=== PATIENT | female | born 1995 | race Caucasian/White ===

== ENCOUNTER → 2022-09-09 09:28 | Outpatient (BNVA) | payer OTHER, SELFPAY | PROVIDERS: PCP Nurse Practitioner Family; Visit Provider Physician Assistant Surgical ==

== ENCOUNTER → 2022-09-13 08:45 | Outpatient (BNVA) | payer OTHER, SELFPAY | PROVIDERS: PCP Nurse Practitioner Family; Visit Provider Surgery ==

== ENCOUNTER 2022-09-21 07:52 | Outpatient (REF) | payer OTHER, SELFPAY ==
--- NOTE | ~2022-09-21 | XR_ITS ---
EXAMINATION: XR CHEST CLINICAL INFORMATION: Obesity COMPARISON: None available. TECHNIQUE: 2 views of the chest were obtained. FINDINGS: No significant abnormality is noted involving the heart, lungs, mediastinum, bony thorax or soft tissues. XR/XR chest 2V IMPRESSION: Unremarkable examination.
--- NOTE | 2022-09-21 08:03 | ECG_ITS ---
Test Reason : morbid obesity Blood Pressure : / mmHG Vent. Rate : 068 BPM Atrial Rate : 068 BPM P-R Int : 172 ms QRS Dur : 082 ms QT Int : 416 ms P-R-T Axes : 003 041 031 degrees QTc Int : 442 ms Normal sinus rhythm Low voltage QRS Borderline ECG No previous ECGs available Referred By: Quan Jane Electronically Signed By:PENG ROBLEDO
[2022-09-21 08:16] LABS: MANUAL DIFF FLAG NO
[2022-09-21 08:28] LABS: Basophils Percent Auto 0.6 % (0-2); Eosinophils Absolute Auto 0.3 X10*3/uL (0.0-0.4); Hematocrit 42.2 % (37.0-47.0); Hemoglobin 14.2 g/dl (12.0-16.0); Imm Gran Abs Auto 0.02 X10*3/uL (0.00-0.03); Imm Gran Pct Auto 0.4 % (0.0-0.4); Lymphocytes Absolute Auto 1.3 X10*3/uL (1.2-4.9); Lymphocytes Percent Auto 26.5 % (20-40); Mean Corpuscular HGB Conc 33.6 g/dl (31.0-35.0); Mean Corpuscular Hemoglobin 27.6 pg (27.0-33.0); Mean Corpuscular Volume 82.1 fL (80.0-98.0); Mean Platelet Volume 9.9 fL (9.4-12.3); Monocytes Absolute Auto 0.5 X10*3/uL (0.1-1.2); Monocytes Percent Auto 9.5 % (2-11); Neutrophils Absolute Auto 2.7 x10*3/uL (2.0-8.3); Platelet Count 284 X10*3/uL (160-400); Red Blood Count 5.14 X10*6/uL (4.20-5.50); Red Cell Distribution Width 12.8 % (11.0-16.0); White Blood Count 4.9 X10*3/uL (4.8-10.8)
[2022-09-21 08:36] LABS: Estimated Average Glucose 97 mg/dL
[2022-09-21 09:07] LABS: Alanine Aminotransferase 23 U/L (0-31); Albumin Level 4.1 g/dL (3.5-5.0); Alkaline Phosphatase 79 U/L (39-117); Anion Gap 14 (12-20); Aspartate Amino Transferase 19 U/L (5-31); Bilirubin Total 0.6 mg/dL (0.0-1.0); Blood Urea Nitrogen 16 mg/dL (9-16); Calcium 9.1 mg/dL (8.4-10.2); Carbon Dioxide 22 mmol/L (22-29); Chloride 108 mmol/L (96-108); Cholesterol 277 mg/dL; Estimated Glomerular Filt Rate > 60; Glucose Random 88 mg/dL (60-115); HDL Cholesterol 37 mg/dL; Iron 140 mcg/dL (30-160); LDL Cholesterol Calculated 208 mg/dl; Percent Iron Saturation 36 % (15-50); Sodium 140 mmol/L (135-145); Total Iron Binding Capacity 389 mcg/dL (228-428); Total Protein 7.3 g/dL (6.5-8.0); Triglycerides 162 mg/dL; Unsaturated Iron Binding 249 ug/dL
[2022-09-21 09:38] LABS: Ferritin 40 ng/mL (10-122); Folate 15.5 ng/mL (> or = 4.0); Insulin 10 uU/mL (2-29); Vitamin B12 865 pg/mL (200-900); Vitamin D 25-OH Total 24.4 ng/mL (>30)
[2022-09-22 14:08] LABS: Calcium (PTHI) 9.1 mg/dL (8.6-10.2); PTHI 80 pg/mL (16-77)
[2022-09-23 13:54] LABS: H Pylori Breath Test Negative (Negative)
[2022-09-27 07:03] LABS: Vitamin B1 11 nmol/L (8-30)
[2022-09-28 17:18] LABS: Zinc 69 mcg/dL (60-130)
[2022-09-29 16:33] LABS: Vitamin A 42 mcg/dL (38-98)
== END 2022-09-21 07:53 | disposition home or self-care (01) ==
LOC: HO.LAB 07:52
PROVIDERS: Visit Provider Surgery
DX: E66.01 Morbid (severe) obesity due to excess calories (principal)
CPT/HCPCS: 36415; 71046; 80053; 80061; 82306; 82607; 82728; 82746; 83013; 83036; 83525; 83540; 83970; 84425; 84443; 84590; 84630; 85025; 86140; 93005; 99211

== ENCOUNTER → 2022-10-05 14:59 | Outpatient (BNVA) | payer OTHER, SELFPAY | PROVIDERS: PCP Nurse Practitioner Family; Visit Provider Counselor Mental Health ==

== ENCOUNTER → 2022-10-15 08:39 | Outpatient (BNVA) | payer OTHER, SELFPAY | PROVIDERS: PCP Nurse Practitioner Family; Visit Provider Surgery ==

== ENCOUNTER → 2022-10-19 13:27 | Outpatient (BNVA) | payer OTHER, SELFPAY | PROVIDERS: PCP Nurse Practitioner Family; Visit Provider Dietitian, Registered | DX: E66.01 Morbid (severe) obesity due to excess calories (principal); Z71.3 Dietary counseling and surveillance | CPT/HCPCS: 97802 ==

== ENCOUNTER 2022-11-15 13:51 | Outpatient (AMB) | payer OTHER, SELFPAY ==
[2022-11-15 11:12] VITALS: BMI 40.9
--- NOTE | 2022-11-15 11:12 | MHC.OFFVISWM ---
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 She had her sister visiting from the [place] and she was eating things not on the menu Meal plan: 2 Orgain protein shakes (1 scoop each in 8oz almond milk), 9-11, and 3-5 one Zone Perfect protein bar, 12-2, 8-10 pm 6 pm one meal (8 forks of protein and 8 forks of salad or vegetables) Drinking 32 oz water exercise plan: home videos but none in the last 2 weeks, planning to join [employer]. [facility] Medical History Back pain Morbid obesity Surgical History Hx of breast reduction, elective Hx of section Family History Mother No problems noted. Father Hypertension Sister No problems noted. Sister No problems noted. Brother No problems noted. Daughter No problems noted. Social History Alcohol intake: never Patient Tobacco Use Status: Never used Tobacco Physical Exam Vital Signs: BMI result Body Mass Index 40.9 Assessment & Plan Assessment & Plan (1) Morbid obesity: Code(s): E66.01 - Morbid (severe) obesity due to excess calories Plan: discussed need to commit to the plans. Encouraged her to discuss with her family that she is trying to achieve a healthy weight and lifestyle and not to offer her food Discussed exercise as a critical part of the program She states she qnd her BF are going to [employer] fitness RTC w Dr Bethea as scheduled Telehealth Telehealth Location of provider rendering services: practice address Location of patient: address on file Patient Identification confirmed using: Name, : Yes Telehealth method: video Patient verbally consented to treatment: Yes Patient verbally consented to billing insurance company: Yes Patient informed of any privacy concerns related to visit: Yes Minutes spent on Phone/Video with Pt.: 15 Coding Level of Care Code Tele Est Pt Level 3 (71879) Diagnoses Morbid obesity E66.01 Time Spent (min) 20
== END 2022-11-15 13:52 | disposition home or self-care (01) ==
LOC: HO.HBS 13:51
PROVIDERS: PCP Nurse Practitioner Family; Visit Provider Physician Assistant Surgical
DX: E66.01 Morbid (severe) obesity due to excess calories (principal); Z68.41 Body mass index [BMI] 40.0-44.9, adult
CPT/HCPCS: 99213

== ENCOUNTER → 2022-11-15 13:51 | Outpatient (BNVA) | payer OTHER, SELFPAY | PROVIDERS: PCP Nurse Practitioner Family; Visit Provider Physician Assistant Surgical ==

== ENCOUNTER 2022-11-19 07:22 | Outpatient (REF) | payer OTHER, SELFPAY ==
--- NOTE | ~2022-11-19 | FL_ITS ---
PROCEDURE: XR FLUOROSCOPY UPPER GI WITH AIR CLINICAL INFORMATION: Morbid to severe obesity due to excess calories. COMPARISON: None available. TECHNIQUE: Routine upper GI air-contrast study was performed in upright and lying position. FINDINGS: Following oral administration of thick barium and effervescent granules in upright view there is normal propagation of bolus from the oral cavity through the pharynx, esophagus into stomach without any evidence of obstruction, narrowing or stricture. The course, caliber and peristalsis of the stomach, duodenal bulb and the sweep is normal. The mucosal pattern of the stomach and duodenum is normal. FLUOROSCOPY TIME: 1.1 minute DOSE AREA PRODUCT: 40.835 uGy-m2 (microgray-meter squared) FL/FL upper GI w air IMPRESSION: Unremarkable upper GI air-contrast study.
--- NOTE | ~2022-11-19 | US_ITS ---
EXAMINATION: US COMPLETE ABDOMEN WITH LIVER ELASTOGRAPHY CLINICAL INFORMATION: Obesity COMPARISON: None available. TECHNIQUE: Real-time imaging of the abdominal viscera. Noninvasive ultrasound liver fibrosis assessment is performed using Deepika ElastPQ point quantification shear wave elastography (2D-SWE) with a C5-2 MHz transducer. Multiple elastography samples are obtained. FINDINGS: PANCREAS: Not well visualized due to bowel gas ABDOMINAL AORTA: The proximal, middle, and distal aortic segments are normal in caliber. INFERIOR VENA CAVA: Visualized portions are normal. LIVER: Liver echotexture is slightly increased. Liver is normal in size and contour. No focal lesion or intrahepatic biliary duct dilatation. The right lobe measures 15 cm in length. The left lobe measures 8 cm in length. Portal flow is normal/hepatopedal Shear wave liver elastography median stiffness is 1.5 m/s (reference: normal median stiffness is 1.3 m/s or less). IQR/median stiffness to assess sampling precision is 0.12 (reference: good quality data set is IQR/median stiffness of 0.15 or less). GALLBLADDER: Gallbladder is contracted and not well evaluated. Gallstones. COMMON BILE DUCT: Normal in caliber measuring 0.3 cm in diameter. RIGHT KIDNEY: Normal. No hydronephrosis. No renal calculi or focal parenchymal lesions. The kidney measures 10.4 cm in maximum dimension. LEFT KIDNEY: Normal. No hydronephrosis. No renal calculi or focal parenchymal lesions. The kidney measures 10.2 cm in maximum dimension. SPLEEN: Normal. The spleen measures 11.3 cm in maximum dimension. FREE FLUID: None. US/US abdomen comp w elastography IMPRESSION: 1. Impression: slightly echogenic liver probably representing fatty infiltration. Contracted gallbladder. Gallstones. Limited visualization of the pancreas. 2. Liver elastography: Adequate liver sampling. In the absence of other known clinical signs, rules out compensated advanced chronic liver disease. REFERENCE: Society of Radiologists in Ultrasound Liver Stiffness Thresholds (2020): LIVER STIFFNESS THRESHOLDS: *Liver Stiffness equal or less than 1.3 m/s: High probability of being normal. *Liver Stiffness less than 1.7 m/s: In the absence of other known clinical signs, rules out compensated advanced chronic liver disease. *Liver Stiffness 1.7-2.1 m/s: Suggestive of compensated advanced chronic liver disease but need further test for confirmation. *Liver Stiffness over 2.1 m/s: Rules in compensated advanced chronic liver disease. *Liver Stiffness over 2.4 m/s: Suggestive of clinically significant portal hypertension. QUALITY OF DATA SET: *IQR/Median value equal or less than 0.15 implies a quality data set. *IQR/Median value over 0.15 implies a poor quality data set. SIGNIFICANT CHANGE FROM PRIOR EXAM: Significant change if liver stiffness measurement is 10% or greater from prior exam. OTHER CONSIDERATIONS: The stage of liver fibrosis may be overestimated in the setting of acute hepatitis, liver inflammation, elevated liver function tests, hepatic vascular congestion, obstructive cholestasis, non-fasting state, and infiltrative diseases such as amyloidosis and lymphoma. In some patients with NAFLD, the liver stiffness thresholds for compensated advanced chronic liver disease may be lower. In causes other than viral hepatitis and NAFLD, liver stiffness thresholds are not well established.
== END 2022-11-19 07:23 | disposition home or self-care (01) ==
LOC: HO.US 07:22
PROVIDERS: PCP Nurse Practitioner Family; Visit Provider Surgery
DX: E66.01 Morbid (severe) obesity due to excess calories (principal)
CPT/HCPCS: 74246; 76705; 76981

== ENCOUNTER → 2022-11-19 07:23 | Outpatient (BNV) | payer OTHER, SELFPAY | PROVIDERS: PCP Nurse Practitioner Family; Visit Provider Radiology Diagnostic Radiology | DX: E66.01 Morbid (severe) obesity due to excess calories (principal); Z68.41 Body mass index [BMI] 40.0-44.9, adult | CPT/HCPCS: 74246 ==

== ENCOUNTER 2022-12-13 08:23 | Outpatient (AMB) | payer OTHER, SELFPAY ==
--- NOTE | 2022-12-13 11:31 | MHC.OFFVISWM ---
Intake VS Expanded 12/13/22 11:37 Height 5 ft 5 in Weight 206 lb BMI 34.3 Body Fat 106 Body Fat Percentage 51.5 Free Fat Mass 99.8 Visceral Mass 22 Water Mass 68.5 BMR 1,348 Intake Visit Reasons: TV Follow Up SWL - Allergies egg yolk [EGG YOLK] Allergy (Unknown, Verified 09/21/22 09:08) ITCHY EYES oak [OAK] Allergy (Unknown, Verified 09/21/22 09:08) ITCHY EYES FROM OAK TREES HPI TV Follow Up SWL - HPI Details Start time: 11.22am, End time: 11.42am ?I spent 15 minutes speaking with the patient on the phone plus an additional 5 minutes reviewing and updating records for a total of 20 minutes HPI Comments History of Present Illness Details Overall weight loss: 12.4lbs, or 5.68% TBWL Is doing 2 Orgain protein shakes (1 scoop each in 8oz almond milk), 2 Zone Perfect protein bars and one meal (8 forks of protein and 8 forks of salad or vegetables) Exercise: is doing stationary bike for 300 calories and walking/hiking on weekends for 300 calories PFSH Medical History Back pain Morbid obesity Surgical History Hx of breast reduction, elective Hx of section Family History Mother No problems noted. Father Hypertension Sister No problems noted. Sister No problems noted. Brother No problems noted. Daughter No problems noted. Social History Alcohol intake: never Patient Tobacco Use Status: Never used Tobacco Assessment & Plan Assessment & Plan (1) Obesity: Code(s): E66.9 - Obesity, unspecified Plan: 1. Continue same nutritional plan of 2 Orgain protein shakes (1 scoop each in 8oz almond milk), 2 Zone Perfect protein bars and one meal (8 forks of protein and 8 forks of salad or vegetables) 2. Exercise: continue stationary bike for 300 calories and walking/hiking on weekends for 300 calories 3. Send me weight measurements weekly on Fridays (2) BMI 34.0-34.9,adult: Code(s): Z68.34 - Body mass index [BMI] 34.0-34.9, adult Telehealth Telehealth Location of provider rendering services: practice address Location of patient: address on file Patient Identification confirmed using: Name, : Yes Telehealth method: voice only Patient verbally consented to treatment: Yes Patient verbally consented to billing insurance company: Yes Patient informed of any privacy concerns related to visit: Yes Minutes spent on Phone/Video with Pt.: 20 Coding Level of Care Code Tele Est Pt Level 3 (56629) Diagnoses Obesity E66.9 BMI 34.0-34.9,adult Z68.34 Time Spent (min) 20
[2022-12-13 11:37] VITALS: BMI 34.3
== END 2022-12-13 11:42 | disposition home or self-care (01) ==
PROVIDERS: PCP Nurse Practitioner Family; Visit Provider Surgery
DX: E66.9 Obesity, unspecified (principal); Z68.34 Body mass index [BMI] 34.0-34.9, adult
CPT/HCPCS: 99213

== ENCOUNTER → 2022-12-13 08:23 | Outpatient (BNVA) | payer OTHER, SELFPAY | PROVIDERS: PCP Nurse Practitioner Family; Visit Provider Surgery | DX: E66.01 Morbid (severe) obesity due to excess calories (principal) ==

== ENCOUNTER 2022-12-17 08:33 | Outpatient (AMB) | payer OTHER, SELFPAY ==
--- NOTE | 2022-12-17 10:46 | MHC.OFFVISWM ---
Intake VS Expanded 12/17/22 10:55 Height 5 ft 5 in Weight 207 lb BMI 34.4 Body Fat 107.2 Body Fat Percentage 51.8 Free Fat Mass 99.6 Visceral Mass 22 Water Mass 68.3 BMR 1,347 Intake Visit Reasons: TV Pre Op LSG 12/23/22 Allergies egg yolk [EGG YOLK] Allergy (Unknown, Verified 12/17/22 10:46) ITCHY EYES oak [OAK] Allergy (Unknown, Verified 12/17/22 10:46) ITCHY EYES FROM OAK TREES Medication List - Last Reconciled 12/17/22 by Quan Jane MD cholecalciferol (vitamin D3) 125 mcg PO DAILY ondansetron 4 mg PO Q12H pantoprazole 40 mg PO DAILY polyethylene glycol 3350 (Miralax) 17 grams PO DAILY sucralfate 10 mL PO BID HPI TV Pre Op LSG 12/23/22 HPI Details Start time: 10.41am, End time: 11.01am ?I spent 15 minutes speaking with the patient on the phone plus an additional 5 minutes reviewing and updating records for a total of 20 minutes HPI Comments History of Present Illness Details Overall weight loss: 11.4lbs, or 5.22% TBWL Is doing 2 Orgain protein shakes (1 scoop each in 8oz almond milk), 2 Zone Perfect protein bars and one meal (8 forks of protein and 8 forks of salad or vegetables) Exercise: doing the stationary bike for 300 calories x4-5 days per week PFSH Medical History (Updated 12/13/22 @ 11:41 by Quan Jane MD) Back pain Morbid obesity Surgical History (Updated 12/17/22 @ 10:25 by Sue Peacock RN) Hx of breast reduction, elective Hx of section Hx of tonsillectomy Hx of wisdom tooth extraction Family History Mother No problems noted. Father Hypertension Sister No problems noted. Sister No problems noted. Brother No problems noted. Daughter No problems noted. Social History Are you a primary medicare specialist to a significant other at home: Yes Do you presently have visiting nurse or other home services: No Alcohol intake: never Patient Tobacco Use Status: Never used Tobacco Assessment & Plan Assessment & Plan (1) Obesity: Code(s): E66.9 - Obesity, unspecified Plan: 1. Plan for lap sleeve gastrectomy including upper GI endoscopy. All tests has been completed and reviewed and the patient is cleared for the surgery. ?If diaphragmatic or ventral hernias are present at time of surgery, these will be repaired laparoscopically as well. Risks and complications were discussed in detail including possible conversion to an open procedure, anastomotic leak, bleeding requiring transfusion, small bowel obstruction, , DVT and pulmonary embolism, cardiac, or pulmonary complications, as truck terminal manager complications such as anastomotic ulcer, insufficient weight loss and vitamin deficiencies. I emphasized the importance of close follow-up, adherence to instructions and good communication. So far she has proven to be an excellent communicator and very compliant with all our directions accomplishing a great weight loss. I believe that she is an excellent candidate and she is ready. 2. Preop prescriptions were provided and explained the purpose of each one. Need to be purchased preop. Start Pantoprazole now as you get it from the pharmacy, 1 pill per day. Sucralfate and Zofran are for after surgery as needed. 3. Bowel prep: please do 7 packets ?of Miralax mixing each one with a an 8oz glass of water, crystal light, gatorade zero, or propel ?on 12/21/22 and the same amount on 12/22/22. Continue the protein shakes during? the bowel prep. 4. Needs to purchase 1oz medicine cups . 5. Needs to purchase Children's liquid Tylenol for postop pain control. 6. Avoid aspirin, motrin, Advil, Aleve, Ibuprofen, Naproxyn. Tylenol is OK. 7. She needs to purchase the Celebrate 4:1 protein shakes from the hospital's gift [facility]. 8. Importance of adherence to postop folllow-up and recommendations was underscored and she understands that. 9. Stop food and bars as of TODAY 12/17/22 and continue with 4 Orgain protein shakes (ONE scoop EACH in 8oz almond milk) at 9am-11am, 12pm-2pm, 3pm-5pm, 6pm-8pm and one more ORGAIN protein shake with TWO scoops in 8oz of almond milk at 9pm-11pm 10. No soups, broths or V8 11. The patient's?medical?history has been reviewed and they are considered low risk for post op DVT and therefore DVT prophylaxis is not considered necessary. Travel after surgery was reviewed. The patient has not disclosed any travel plans during the first 30 days after surgery and they have been advised that within the first 30 days after surgery any bus, plane, train or car travel over 2 hours in duration is contraindicated due to the possibility of developing blood clots from immobility. Any travel, needs to include periods of ambulation of 10 minutes in duration every 2 hours.? Patient was instructed to discuss any plans for travel during this period with their bariatric surgeon.? 12. Please take at the day of surgery the following medications: 13. Stop any control pills and don't use them for one month after surgery 14. Absolutely no smoking or vaping, or marijuana until the surgery and for at least the first 4 weeks. Only nicotine patches are allowed. 15. Send me weight measurements on and then on the day of surgery before you go to the hospital. 16. Avoid any steroids by mouth for any reason. Let me know if someone prescribes them to you (2) BMI 34.0-34.9,adult: Code(s): Z68.34 - Body mass index [BMI] 34.0-34.9, adult Orders: Orders Type and Screen Today E66.01 - Morbid (severe) obesity due to excess calories Comprehensive Met. Panel Today E66.01 - Morbid (severe) obesity due to excess calories C Reactive Protein Today E66.01 - Morbid (severe) obesity due to excess calories Hemoglobin A1c Today E66.01 - Morbid (severe) obesity due to excess calories Insulin Today E66.01 - Morbid (severe) obesity due to excess calories Lipid Panel Today E66.01 - Morbid (severe) obesity due to excess calories TSH reflex Free T4 Today E66.01 - Morbid (severe) obesity due to excess calories Prothrombin Time INR Today E66.01 - Morbid (severe) obesity due to excess calories Partial Thromboplastin Time Today E66.01 - Morbid (severe) obesity due to excess calories Complete Blood Count Auto Diff Today E66.01 - Morbid (severe) obesity due to excess calories Medications: New pantoprazole 40 mg PO DAILY 30 tabs 2RF K21.9 - Gastro-esophageal reflux disease without esophagitis sucralfate 10 mL PO BID 400 mL 2RF K21.9 - Gastro-esophageal reflux disease without esophagitis ondansetron Only take one every 12 hours as needed if you have nausea 4 mg PO Q12H 20 tabs 0RF nausea and vomiting R11.0 - Nausea polyethylene glycol 3350 (Miralax) Mix each packet with 8oz of water, Crystal light, or Gatorade zero, or Propel and do 7 packets on 12/21/22 and another 7 packets on 12/22/22 17 grams PO DAILY 14 ea 0RF Z01.818 - Encounter for other preprocedural examination Telehealth Telehealth Location of provider rendering services: practice address Location of patient: address on file Patient Identification confirmed using: Name, : Yes Telehealth method: voice only Patient verbally consented to treatment: Yes Patient verbally consented to billing insurance company: Yes Patient informed of any privacy concerns related to visit: Yes Minutes spent on Phone/Video with Pt.: 20 Coding Level of Care Code Tele Est Pt Level 3 (59597) Diagnoses Obesity E66.9 BMI 34.0-34.9,adult Z68.34 Time Spent (min) 20
[2022-12-17 10:55] VITALS: BMI 34.4
== END 2022-12-17 11:02 | disposition home or self-care (01) ==
LOC: HO.HBS 08:33
PROVIDERS: PCP Nurse Practitioner Family; Visit Provider Surgery
DX: E66.9 Obesity, unspecified (principal); Z68.34 Body mass index [BMI] 34.0-34.9, adult
CPT/HCPCS: 99213

== ENCOUNTER → 2022-12-17 08:33 | Outpatient (BNVA) | payer OTHER, SELFPAY | PROVIDERS: PCP Nurse Practitioner Family; Visit Provider Surgery ==

== ENCOUNTER 2022-12-22 12:06 | Inpatient (IN) | payer OTHER, SELFPAY ==
[2022-12-17 10:20] LABS: MANUAL DIFF FLAG NO
[2022-12-17 10:30] VITALS: BMI 40.4
[2022-12-17 10:54] LABS: Basophils Percent Auto 0.3 % (0-2); Eosinophils Absolute Auto 0.1 X10*3/uL (0.0-0.4); Eosinophils Percent Auto 2.9 % (0-4); Hematocrit 40.8 % (37.0-47.0); Hemoglobin 13.9 g/dl (12.0-16.0); Lymphocytes Absolute Auto 1.1 X10*3/uL (1.2-4.9); Lymphocytes Percent Auto 27.6 % (20-40); Mean Corpuscular HGB Conc 34.1 g/dl (31.0-35.0); Mean Corpuscular Hemoglobin 27.7 pg (27.0-33.0); Mean Corpuscular Volume 81.4 fL (80.0-98.0); Mean Platelet Volume 10.1 fL (9.4-12.3); Monocytes Absolute Auto 0.5 X10*3/uL (0.1-1.2); Monocytes Percent Auto 12.1 % (2-11); Neutrophils Absolute Auto 2.2 x10*3/uL (2.0-8.3); Neutrophils Percent Auto 57.1 % (45-73); Platelet Count 288 X10*3/uL (160-400); Red Blood Count 5.01 X10*6/uL (4.20-5.50); Red Cell Distribution Width 12.8 % (11.0-16.0); White Blood Count 3.8 X10*3/uL (4.8-10.8)
[2022-12-17 10:58] LABS: Estimated Average Glucose 97 mg/dL; Prothrombin Time 12.7 SEC (11.1-13.3)
[2022-12-17 11:01] LABS: Partial Thromboplastin Time 33.5 SEC (26.0-36.4)
[2022-12-17 12:23] LABS: Alanine Aminotransferase 21 U/L (0-31); Albumin Level 4.1 g/dL (3.5-5.0); Alkaline Phosphatase 70 U/L (39-117); Anion Gap 13 (12-20); Aspartate Amino Transferase 24 U/L (5-31); Bilirubin Total 0.4 mg/dL (0.0-1.0); Blood Urea Nitrogen 9 mg/dL (9-16); C Reactive Protein 0.52 mg/dL (< or = 0.50); Calcium 8.9 mg/dL (8.4-10.2); Carbon Dioxide 25 mmol/L (22-29); Chloride 107 mmol/L (96-108); Cholesterol 211 mg/dL; Creatinine Clr Calc Pharmacy 136.1; Estimated Glomerular Filt Rate > 60; Glucose Random 84 mg/dL (60-115); HDL Cholesterol 37 mg/dL; LDL Cholesterol Calculated 153 mg/dl; Potassium 3.8 mmol/L (3.3-5.1); Sodium 141 mmol/L (135-145); Total Protein 7.4 g/dL (6.5-8.0); Triglycerides 106 mg/dL
[2022-12-17 12:37] LABS: TSH reflex Free T4 3.31 uIU/mL (0.32-4.0)
[2022-12-17 13:10] LABS: Insulin 9 uU/mL (2-29)
--- NOTE | 2022-12-17 22:33 | MHC.SHP ---
Pre-Procedural Eval Section A Date of Service: 12/17/22 The patient is an INPATIENT: Yes The History & Physical has been completed within 30 days and I have reviewed it.: Yes Section B Chief Complaint: Obesity, unspecified Relevant Family History (Specify if Yes): No Relevant Social History: None Present Medications: None Medical History: No relevant PMH History of Previous Operations: No relevant previous surgery Allergies: Allergies Allergy/AdvReac Type Severity Reaction Status Date / Time egg yolk [EGG YOLK] Allergy Unknown ITCHY EYES Verified 12/17/22 10:46 oak [OAK] Allergy Unknown ITCHY EYES Verified 12/17/22 10:46 FROM OAK TREES Review of Systems Sugical H&P ROS: Negative: Constitution, Cardiovascular, Respiratory, Neurological, Psychiatric, Hem-Onc, Allergic/Immunologic, Gastrointestinal, Genitourinary, Musculoskeletal, Integumentary, Endocrine and Eyes/Ears/Nose/Throat Exam Surgical H&P Exam: Normal: HEENT, Normal: Heart, Normal: Lungs, Normal: Extremities, Normal: Abdomen, Normal: Skin and Normal: Neurological Plan Diagnosis/Plan: Unchanged I have reviewed the history and physical and performed a pertinent physical examination on my patient. No changes have occurred unless specified. Time Spent With Patient Time: Total time managing care of this patient today ____ minutes.
--- NOTE | 2022-12-21 09:35 | P.CONAN_ITS ---
Documented by User: Parvin Nash NP 12/21/22 09:37 HPI - Anesthesia Eval Consult details Narrative: 27yo F for Gastrectomy Sleeve Egd, poss diaphragmatic hernia, poss Ventral hernia,poss open PMFSH Active Problems Active Problems: All Active Problems (Updated 12/13/22 @ 11:41 by Quan Jane MD) Vitamin D deficiency (Acute) Adjustment disorder with depressed mood (Acute) Obesity (Acute) BMI 34.0-34.9,adult (Acute) Back pain (Acute) Morbid obesity (Acute) Past Medical History Medical History (Updated 12/22/22 @ 14:33 by Quan Jane MD) Back pain Morbid obesity Family History Family History Mother No problems noted. Father Hypertension Sister No problems noted. Sister No problems noted. Brother No problems noted. Daughter No problems noted. Surgical History Surgical History Hx of breast reduction, elective Hx of section Hx of tonsillectomy Hx of wisdom tooth extraction Social History Social History Are you a primary caregiver services home to a significant other at home: Yes Do you presently have visiting nurse or other home services: No Alcohol intake: never Patient Tobacco Use Status: Never used Tobacco Use of substances other than those prescribed or required for medical reasons: No Have you been hit, kicked, punched, or otherwise hurt by someone within the past year? If so, by whom?: No Are you DNR?: No Advance Directives: No Advance Directives Information Provided: No Advance Directives on File: No Recently lost weight without trying: No Eating poorly because of decreased appetite: No Nutrition Risks: No Nutritional Risk Patient : No : No Poor oral hygiene: Yes (one upper missing tooth) Meds Allergies Allergy/AdvReac Type Severity Reaction Status Date / Time egg yolk [EGG YOLK] Allergy Unknown ITCHY EYES Verified 12/22/22 12:27 oak [OAK] Allergy Unknown ITCHY EYES Verified 12/22/22 12:27 FROM [employer] Exam Exam Date and Time: December 21, 2022 0935 Height,Weight and Vital Signs: Height 5 ft Weight 93.894 kg Pertinent Lab Results Pertinent Lab Results: Laboratory Tests 12/17/22 12/17/22 12/17/22 10:11 10:18 10:18 WBC 3.8 L RBC 5.01 Hgb 13.9 Hct 40.8 MCV 81.4 MCH 27.7 MCHC 34.1 RDW 12.8 Plt Count 288 MPV 10.1 Immature Gran % (Auto) 0.0 Neut % (Auto) 57.1 Lymph % (Auto) 27.6 [place] % (Auto) 12.1 H Eos % (Auto) 2.9 Baso % (Auto) 0.3 Lymph # (Auto) 1.1 L [place] # (Auto) 0.5 Eos # (Auto) 0.1 Baso # (Auto) 0.0 Abs Immat Gran (auto) 0.00 Absolute Neuts (auto) 2.2 Absolute Nucleated RBC 0.000 Nucleated RBC % (auto) 0.0 PT 12.7 INR 1.0 APTT 33.5 Sodium Potassium Chloride Carbon Dioxide Anion Gap BUN Creatinine Estim Creat Clear Calc Estimated GFR Random Glucose Estimat Average Glucose Hemoglobin A1c % Insulin Level Calcium Total Bilirubin AST ALT Alkaline Phosphatase C-Reactive Protein Total Protein Albumin Triglycerides Cholesterol LDL Cholesterol, Calc HDL Cholesterol TSH Blood Type A Positive Antibody Screen NEGATIVE 12/17/22 12/17/22 10:18 10:18 WBC RBC Hgb Hct MCV MCH MCHC RDW Plt Count MPV Immature Gran % (Auto) Neut % (Auto) Lymph % (Auto) [place] % (Auto) Eos % (Auto) Baso % (Auto) Lymph # (Auto) [place] # (Auto) Eos # (Auto) Baso # (Auto) Abs Immat Gran (auto) Absolute Neuts (auto) Absolute Nucleated RBC Nucleated RBC % (auto) PT INR APTT Sodium 141 Potassium 3.8 Chloride 107 Carbon Dioxide 25 Anion Gap 13 BUN 9 Creatinine 0.63 Estim Creat Clear Calc 136.1 Estimated GFR > 60 Random Glucose 84 Estimat Average Glucose 97 Hemoglobin A1c % 5.0 Insulin Level 9 Calcium 8.9 Total Bilirubin 0.4 AST 24 ALT 21 Alkaline Phosphatase 70 C-Reactive Protein 0.52 H Total Protein 7.4 Albumin 4.1 Triglycerides 106 Cholesterol 211 LDL Cholesterol, Calc 153 HDL Cholesterol 37 TSH 3.31 Blood Type Antibody Screen Narrative Narrative: EKG 08/2022 Vent. Rate : 068 BPM ? ? Atrial Rate : 068 BPM ?? P-R Int : 172 ms? QRS Dur : 082 ms ? ? QT Int : 416 ms ? ? ? P-R-T Axes : 003 041 031 degrees ?? QTc Int : 442 ms ? Normal sinus rhythm Low voltage QRS Borderline ECG No previous ECGs available Assessment and Plan Assessment Anesthesia Assessment: Chart Reviewed Documented by User: Heladio Bay MD 12/22/22 17:35 HPI - Anesthesia Eval Consult details Narrative: 27yo F for Gastrectomy Sleeve Egd, poss diaphragmatic hernia, poss Ventral hernia,poss open functional status greater than 4 METS PMFSH Past Medical History Medical History (Updated 12/22/22 @ 14:33 by Quan Jane MD) Back pain Morbid obesity Functional capacity: independent ambulation Family History Family History Mother No problems noted. Father Hypertension Sister No problems noted. Sister No problems noted. Brother No problems noted. Daughter No problems noted. Family history of problems with anesthesia: No Surgical History Surgical History Hx of breast reduction, elective Hx of section Hx of tonsillectomy Hx of wisdom tooth extraction History of Problems with Anesthesia: No Social History Social History Are you a primary caregiver services home to a significant other at home: Yes Do you presently have visiting nurse or other home services: No Alcohol intake: never Patient Tobacco Use Status: Never used Tobacco Use of substances other than those prescribed or required for medical reasons: No Have you been hit, kicked, punched, or otherwise hurt by someone within the past year? If so, by whom?: No Are you DNR?: No Advance Directives: No Advance Directives Information Provided: No Advance Directives on File: No Recently lost weight without trying: No Eating poorly because of decreased appetite: No Nutrition Risks: No Nutritional Risk Patient : No : No Poor oral hygiene: Yes (one upper missing tooth) Meds Allergies Allergy/AdvReac Type Severity Reaction Status Date / Time egg yolk [EGG YOLK] Allergy Unknown ITCHY EYES Verified 12/22/22 12:27 oak [OAK] Allergy Unknown ITCHY EYES Verified 12/22/22 12:27 FROM [employer] Exam Airway Mallampati Class: III TM Dist: <=3cm Neck ROM: Full Loose/Missing/Broken Teeth: Yes Assessment and Plan Assessment Anesthesia Assessment: Anesthesia Plan Discussed Final Anesthetic Review Family History of Problems with Anesthesia: No History of Problems with Anesthesia: No NPO: Yes ASA Class: III Final Preanesthetic Review: Meds/Allgs Chart Reviewed, Consent Obtained/Reviewed and Anes Risks/Benef Reviewed Patient Risk: Intermediate Procedure Risk: Intermediate Anesthetic Plan Anesthetic Plan: GA Disposition: Standard PACU
[2022-12-22] VITALS (17 sets, daily range): BP systolic 111–161; BP diastolic 54–98; PULSE 59–81; RESP 15–22; TEMP 36.3–36.8; O2SAT 97–100
--- NOTE | 2022-12-22 12:12 | PHA.MEDREC ---
Pharmacy Consult ? Medication Reconciliation Medication reconciliation COMPLETED BY RN RENEWED BY PHARMACY KARMEN.
[2022-12-22 12:29] LABS: UPreg QC Valid YES; Urine Pregnancy NEGATIVE (NEGATIVE)
[2022-12-22] MEDS: Lactated Ringers 1,000 ML 999 ML IV (13:31)
[2022-12-22] MEDS: Aprepitant 32 MG/4.4 ML VIAL IVPUSH (13:31)
--- NOTE | 2022-12-22 14:28 | P.BOP_ITS ---
Brief Operative Note Date of Service: 12/22/22 Pre-op diagnosis: Morbid obesity with comorbidities (see below) Post-op diagnosis: same Procedure: INITIAL PATIENT BMI ON PRESENTATION AT OUR OFFICE: 42 kg/m2 LAST BMI BEFORE SURGERY: 40.6 Kg/m2 COMORBIDITIES: back pain, liver steatosis ?The patient presented to the Weight Management Program with significant obesity that was negatively impacting the patient's comorbidities as listed above.? The program is a phased program with a special focus on preoperative medical weight management to promote substantial weight loss and prepare the patients for the second phase of the program: bariatric surgery. The patient participated in an intensive weekly lifestyle ?intervention and exercise program during which the patient ?has lost between the initial office visit and the last preoperative v isit 11.4 lbs, or 5.2% of initial actual body weight. It was deemed appropriate for the patient to now have bariatric surgery. In light of the current Covid-19 pandemic and the well documented strong association of obesity and increased risk of worse outcomes if infected with Covid-19 (REFERENCES: https://pubmed.ncbi.nlm.nih.gov/20900012/ ,? https://pubmed.ncbi.nlm. nih.gov/20941377/ ), any delay in undergoing bariatric surgery may lead to the patient's worsening health condition and increased?risk of more severe Covid-19 disease if infected. In addition a recent?study from [facility] published in [facility] on 04/27/2021 ([email or web address]/C:/[email or web address]_[email or web address]) found that, among patients with obesity, substantial weight loss achieved with surgery was associated with improved outcomes of COVID-19 infection. The findings suggest that obesity can be a modifiable risk factor for the severity of COVID-19 infection. In addition, the patient met the BMI-criteria for bariatric surgery based on the BMI on initial presentation. The patient should not be penalized for achieving such weight loss because ?it is not sustainable long-term without surgical intervention and it was achieved in preparation for bariatric surgery ?under my direction and based on my published research ([email or web address]/C: /[email or web address]).pdf and? https://www.soard.org/article/[email or web address](64)41459-X/pdf ) ?that a 10% preoperative weight loss improves long-term weight loss after surgery and reduces perioperative complications.? Insurance carriers such as [facility] have endorsed my recommendations ?and have included in their policies criteria to include a 10% preoperative weight loss requirement. PROCEDURE: Esophago-gastroscopy, laparoscopic lysis of adhesions, laparoscopic sleeve gastrectomy and laparoscopic gastropexy INDICATIONS: This is a 27 year-old female who was electively scheduled for laparoscopic, possibly open sleeve gastrectomy. The risks and complications of the procedure were discussed with the patient in advance, particularly the possibility of ; pulmonary embolism; staple line leak; bleeding; GERD; cardiac, pulmonary, or renal complications; as well as long-term problems such as insufficient weight loss, vitamin deficiency, strictures, or ulcers. The patient understood all the risks, and was in agreement to proceed with surgery. DESCRIPTION OF PROCEDURE: After informed consent was obtained from the patient, the patient was given preoperative antibiotics, and was transferred to the operating room. After successful induction of general anesthesia, pneumatic compression devices were placed on both lower extremities. An upper endoscopy was performed next. The oropharynx and esophagus appeared to be within normal limits. There was no diaphragmatic hernia present consistent with the findings of the preoperative upper GI. The stomach was entered. Then after all fluid and air were suctioned and the stomach was fully decompressed, the scope was withdrawn and secured in the mid esophagus. The patient was then prepped and draped in the usual sterile manner, and abdominal access was established at the right upper quadrant with the Quiana technique. A 12 mm blunt port was inserted, and the abdomen was insufflated with CO2 to a pressure of 15 mmHg. Under direct visualization, additional ports were placed, specifically two 5 mm Versi-step ports to the left upper quadrant, and a 5 mm Versi-Step port to the right upper quadrant. 1% lidocaine plain was used to infiltrate all port sites as well as all fascia defects. Following that, the patient was placed in a steep reverse Trendelenburg position. An additional 5 mm port was placed to the right flank for the Mediflex retractor that was used to retract the left lobe of the liver. The gastro-esophageal fat pad was opened with the ultrasonic device (Thunderbeat, Olympus) and the anterior esophagus and hiatus were exposed. The angle of His was opened with the ultrasonic device the fundus of the stomach from any diaphragmatic and splenic attachments. I then opened the gastrocolic ligament between the transverse colon and the greater curvature of the stomach with the ultrasonic device to enter the lesser sac and facilitate the ligation of the short gastric vessels. I started at a mid-point along the greater curvature and using the Thunderbeat, all short gastric vessels were divided all the way to the angle of His until the left tobin was completely dissected at its entirety. I then divided the gastro-colic ligament distally to a distance of about 3-4 cm proximal to the pylorus. There were extensive congenital adhesions between the pancreas and posterior gastric wall. Those were lysed completely with the ultrasonic The stomach was then divided transversely with two Endo ZULEIKA-45 purple and three ZULEIKA-60 articulating purple loads using the [employer] stapler and loads. Every effort was made that the gastric sleeve had a tubular shape and an even caliber throughout. Once the sleeve resection was completed, the staple line of the gastric sleeve was reinforced with Hemoclips. The resected stomach was retrieved without difficulty from the Quiana port. A gastropexy was then performed in order to prevent postoperative GERD and partial gastric volvulus. Several interrupted 2.0 Surgidac sutures were placed between the sleeve's staple line and the previously divided greater omentum and gastro-colic ligament using the Endo-Stitch device. ?An upper endoscopy was performed. There was no narrowing at the GE junction. The scope was easily advanced all the way to the pylorus which was clearly visualized. There was no narrowing anywhere and the sleeve's caliber was even throughout. The sleeve's staple line was inspected and there was no evidence of ischemia, bleeding or dehiscence. At that point the gastroscope was withdrawn from the patient?s mouth while we were decompressing the bowel and the stomach from any remaining air. I looked into the lesser sac to see how the sleeve was situating and it was situating well. There was no bleeding from the staple line, spleen, or short gastric vessels. The Mediflex retractor was removed, and the undersurface of the liver was inspected and there was no bleeding. The patient was placed in supine position. I closed the fascial defect of the 12 mm port site with a figure of eight #1 Polysorb suture. Then 30cc Ropivacaine plain with 10 mg of Dexamethasone were used to infiltrate the fascial closure as well as all skin incisions. At this point, the abdomen was deflated, all ports were removed under direct vision, and no bleeding was noted from any of the port sites. The skin incisions were irri gated with saline and were closed with 4-0 absorbable monofilament sutures. Steri-Strips and OpSites were used to cover all incisions. The patient was extubated and was transferred in stable condition to the recovery room for further care. I was present and performed all flannery parts of the procedure. Mr Adair was the first aid instructor. There were no residents to assist with this case. Yosi Jane MD, PhD, FACS Surgeon: Quan Jane MD Anesthesia: GETA, local and other (TAP block) Was an Tractor Trailer Mechanic used for this Procedure?: Yes Tractor Trailer Mechanic: Carlos A Adair Estimated blood loss (mL): 10 IV fluids (mL): 2,500 Urine output (mL): 0 (No Scott to record output) Pathology: other (Stomach) Condition: stable Disposition: PACU
--- NOTE | 2022-12-22 14:31 | PM.PNGS ---
Subjective Subjective Date of Service: 12/23/22 Interval history: Feels well. Mild incisional pain. She is tolerating phase 1 bariatric diet Physical Exam Vital Signs: Vital Signs: Last Vital Signs Temp 98.2 F 12/22/22 13:01 Pulse 70 12/22/22 13:01 Resp 15 12/22/22 13:01 BP 111/54 L 12/22/22 13:01 Pulse Ox 98 12/22/22 13:01 O2 Del Method Room Air 12/22/22 13:01 BMI result Body Mass Index 40.4 GI: Inspection: Yes normal to inspection, Yes incision (clean, dry and intact) and Yes obesity Palpation (GI): Soft to palpation Extrem: Right lower extremity: normal to inspection (no calf tenderness) Left lower extremity: normal to inspection (no calf tenderness) Objective Data Active Medications Lactated Ringer's (Lr) 1,000 mls @ 100 mls/hr IVCONT .Q10H CHARLY Labs 12/17/22 10:18 12/17/22 10:18 Labs: Laboratory Results - last 24 hr 12/22/22 12:15 Urine Test NEGATIVE Procedures Date of Service Date of Service: 12/23/22 Progress Note: A&P Assessment and plan (1) Morbid obesity: Status: Acute Assessment and Plan: s/p laparoscopic sleeve gastrectomy, lysis of adhesions and gastropexy Doing well Will check am labs and if OK the patient will be discharged home (2) Back pain: Status: Acute (3) Steatosis, liver: Status: Acute (4) S/P laparoscopic sleeve gastrectomy: Status: Acute Time Spent With Patient Time: Total time managing care of this patient today ____ minutes. Quality Stroke Does the patient have a stroke diagnosis?: No VTE Prior VTE?: No VTE Risk Level:: Surgical - moderate VTE Device Contraindication: Treatment Not Indicated VTE Drug Contraindication: Treatment Not Indicated
--- NOTE | 2022-12-22 17:19 | PM.DS ---
DS: Providers Provider Date of Service: 12/23/22 Date of admission: 12/22/22 12:06 Primary care physician: Shubham Beavers [facility] DS: Diagnosis Discharge Diagnosis (1) Morbid obesity: Status: Acute (2) Back pain: Status: Acute (3) Steatosis, liver: Status: Acute DS: Summary Hospital Course Hospital Course: ADMITTING DIAGNOSIS: morbid obesity, back pain ? DISCHARGE DIAGNOSIS: same, s/p laparoscopic sleeve gastrectomy ? PAST SURGICAL HISTORY: breast reduction, cesarian section, tonsillectomy ? PROCEDURE: upper endoscopy, laparoscopic sleeve gastrectomy ? DISCHARGE SUMMARY: ? History of Present Illness: ? The patient is a?27 year-old woman with a BMI of?41.9 kg/m2 and associated co-morbidities as described above. The patient had extensive work-up,lost?11.9 lbs preoperatively and was electively scheduled for laparoscopic, possible open sleeve gastrectomy and gastropexy. Risks and complications of the surgery were discussed with the patient in advance, particularly the possibility of , pulmonary embolism, anastomotic leak, bleeding, bowel injury, GERD, cardiac, renal or pulmonary complications. The patient understood all the risks and was in agreement with the surgical plan. ? Hospital Course: ? The patient underwent an uneventful laparoscopic sleeve gastrectomy with gastropexy on the day of admission. Postoperatively, the patient was transferred to the surgical floor. The patient received IV Acetaminophen and IV dilaudid for pain control. Patient was started on bariatric phase 1 diet POD #0. On postoperative day one, the patient was feeling well without nausea, vomiting, fevers, or tachycardia. The patient had some mild incisional pain and the abdomen was soft. ? On the morning of postoperative day one, the patient was continued on 1 ounce of water or ice every half hour. During the day, the patient did fairly well, having some incisional pain, but able to ambulate adequately and to tolerate liquids well. ? Since the patient is doing well, we decided that the patient was ready to be discharged. The patient was given instructions to follow-up with me next week and to call my office for any fever over 101, persistent abdominal pain, nausea, vomiting, GERD, symptoms of DVT such as calf tenderness, or leg swelling, or pulmonary embolism such as chest pain or shortness of breath. The patient was also instructed to drink 40-60 ounces of liquids per day using the 1-ounce cups. The patient had been given prescriptions for Tylenol for pain, Zofran prn for nausea, and pantoprazole and carafate previously. The patient was encouraged to ambulate and use the incentive spirometer. The patient was allowed to shower, but no baths, and encouraged to stay active at home. All of these instructions were given to the patient personally. All questions were answered and the patient understood all instructions, the instructions were also given to the patient in print. Time Spent with Patient Time attestation: Total time managing care of this patient today ____ minutes. Discharge coordination time: Less than 30 minutes Quality: Safe Use of Opioids Does Pt have an Active Cancer Diagnosis on the Problem List?: No Quality: Stroke Does the patient have a stroke diagnosis?: No Physical Exam Vital Signs: Vital Signs: Last Vital Signs Temp 98.2 F 12/22/22 13:01 Pulse 70 12/22/22 13:01 Resp 15 12/22/22 13:01 BP 111/54 L 12/22/22 13:01 Pulse Ox 98 12/22/22 13:01 O2 Del Method Room Air 12/22/22 13:01 BMI result Body Mass Index 40.4 DS: Data Data Completed and Pending Pending studies at discharge: Pending at discharge 12/22/22 16:36 Surgical [PTH] Routine Labs on day of discharge: Laboratory Results - last 24 hr 12/22/22 12:15 Urine Test NEGATIVE Discharge Plan Discharge Anticipated Discharge Date/Time: 12/23/22 15:15 Patient Disposition: Home, Self-Care Discharge Diagnosis: s/p laparoscopic sleeve gastrectomy Referrals: Shubham Beavers, [facility] [employer] [employer] [facility] [Primary Care Provider] - 1 Week Discharge Medications: Continued pantoprazole 40 mg tablet,delayed release (DR/EC) 40 mg PO DAILY Qty: 30 2RF sucralfate 100 mg/mL suspension 10 ml PO BID Qty: 400 2RF ondansetron 4 mg tablet,disintegrating 4 mg PO Q12H Qty: 20 0RF Rx Instructions: Only take one every 12 hours as needed if you have nausea Discontinued cholecalciferol (vitamin D3) 125 mcg (5,000 unit) capsule 125 mcg PO DAILY Qty: 30 2RF Discharge Orders: Discharge Order (Routine); Ordered 12/23/22 Ordered By: Quan Jane Activity on Discharge: As tolerated Stand Alone Forms: Patient Portal Discharge page Care Plan Goals: weight loss Health Concerns: morbid obesity Plan of Treatment: No tub baths, sex or returning to work until discussed at first post op appointment. No exercise, alcohol, tobacco or illegal drug use. Continue to use incentive spirometer hourly while awake. Walk in home for 5- 10 minutes every 2 hours during the first week. Follow all instructions in the bariatric handbook and call with any questions.Discharge Instructions 1. Please call your doctor or come back to the emergency room should any new symptoms arise. 2. You will receive a courtesy call from [facility] 24-48 hours after discharge. 3. Activity: abstain from alcohol, practice limited stair climbing, no bending, no driving, no exercise, no illicit substances, no lifting, no sex, no tub bath, no work. 4. Diet: continue as discussed with Dr. Jane. 5. Dressing Change/Wound Care: Your incision is covered by clear bandages and guaze underneath. If the area is tender, you may apply an ice pack for short intervals (no more than 20 minutes on, followed by at least 20 minutes off). Do not apply heat. Do not use creams, lotions, or topical antibiotics unless instructed to do so by your surgeon. These can cause infection or allergic reaction. 6. Call your doctor if: - Your temperature exceeds 101.5 F - You experience excessive pain or swelling - You have an unexpected reaction to medication - You have excessive bleeding - You experience continued vomiting/nausea - Your incision begins to separate - Your incision shows signs of infection such as increased redness, swelling, excessive pain, heat, or drainage (light blood or clear fluid is normal) 7. General instructions: No lifting greater than 5 lbs for the next 4 weeks[address] driving within 24 hours of taking narcotic pain medications. If you do not move your bowels in the next 2 days, please take milk of magnesia over the counter. Please follow the post op diet and do not advance your diet until you are seen in the office in about 2 weeks. Please walk around your home every hour or two to prevent blood clots from forming in your legs. You do not need to wake from sleeping to walk. Please sleep in a bed or couch to prevent kinking at the hips and knees. Please take your incentive spirometer (your lung cargo tank mechanic) home with you and use it for the next few days to prevent pneumonias. You may shower, no hot tubs, baths or swimming pools. Please call the office with any questions or concerns such as increasing abdominal pain, fever, chills, shortness of breath, chest pain, leg pain or swelling, or redness or drainage from your incisions. Please stay on stage 3 diet which includes sugar free clear liquids such as ice pops and jello and broth and crystal light. Avoid all carbonation. Please drink 3 protein shakes with at least 25-30 grams of protein daily or 3 of the Celebrate 4:1 shakes which can be purchased in our office. The Celebrate shakes have all of the bariatric vitamins you need if you consume these shakes. If you are drinking other protein shakes, you will need to purchase the Celebrate multivitamins and calcium that we provide in the office (they will provide all the vitamins you need). Please make sure you are consuming at least 40-60 ounces of water in addition to your 3 protein shakes daily. Do not hesitate to contact the office with any questions at . The patient's medical history has been reviewed and they are considered low risk for post op DVT and therefore DVT prophylaxis is not considered necessary. Travel after surgery was reviewed. The patient has not disclosed any travel plans during the first 30 days after surgery and they have been advised that within the first 30 days after surgery any bus, plane, train or car travel over 2 hours in duration is contraindicated due to the possibility of developing blood clots from immobility. Any travel, needs to include periods of ambulation of 10 minutes in duration every 2 hours.? The patient was instructed to discuss any plans for travel during this period with their bariatric surgeon. Assessment: stable s/p laparoscopic sleeve gastrectomy Discharge Date/Time: 12/23/22 16:15
[2022-12-22] MEDS: HYDROmorphone HCl 0.5 MG/0.5 ML SYRINGE IVPUSH ×2 (17:59→18:36)
[2022-12-22 18:13] LABS: Hematocrit 39.9 % (37.0-47.0); Hemoglobin 13.5 g/dl (12.0-16.0)
[2022-12-22 18:23] LABS: Anion Gap 17 (12-20); Blood Urea Nitrogen 7 mg/dL (9-16); Calcium 8.6 mg/dL (8.4-10.2); Carbon Dioxide 19 mmol/L (22-29); Chloride 106 mmol/L (96-108); Creatinine Clr Calc Pharmacy 142.9; Estimated Glomerular Filt Rate > 60; Glucose Random 103 mg/dL (60-115); Potassium 3.8 mmol/L (3.3-5.1); Sodium 138 mmol/L (135-145)
[2022-12-22] MEDS: Lactated Ringers 1,000 ML 100 ML IVCONT (19:55)
[2022-12-22] MEDS: Famotidine/PF 20 MG/2 ML VIAL IVPUSH (19:56)
[2022-12-22] MEDS: 0.9 % Sodium Chloride Flush 3 ML SYRINGE IVFLUSH (19:56)
[2022-12-22] MEDS: ceFAZolin Sodium/Dextrose,Iso 2 GM/50 ML PIGGYBACK IV (20:02)
[2022-12-22] MEDS: Acetaminophen 1,000 MG/100 ML PIGGYBACK 400 MG IV (22:26)
[2022-12-23 04:00] VITALS: BP 137/77; PULSE 71; RESP 18; TEMP 36; O2SAT 95
[2022-12-23] MEDS: Acetaminophen 1,000 MG/100 ML PIGGYBACK 400 MG IV ×2 (04:30→10:48)
[2022-12-23] MEDS: Lactated Ringers 1,000 ML 100 ML IVCONT (06:02)
[2022-12-23 07:07] VITALS: BP 123/64; PULSE 78; RESP 17; TEMP 36.7; O2SAT 96
[2022-12-23 07:08] LABS: MANUAL DIFF FLAG NO
[2022-12-23] MEDS: Famotidine/PF 20 MG/2 ML VIAL IVPUSH (07:24)
[2022-12-23 07:33] LABS: Hemoglobin 13.7 g/dl (12.0-16.0); Imm Gran Abs Auto 0.02 X10*3/uL (0.00-0.03); Imm Gran Pct Auto 0.4 % (0.0-0.4); Lymphocytes Absolute Auto 0.4 X10*3/uL (1.2-4.9); Lymphocytes Percent Auto 8.5 % (20-40); Mean Corpuscular HGB Conc 33.4 g/dl (31.0-35.0); Mean Corpuscular Hemoglobin 27.8 pg (27.0-33.0); Mean Corpuscular Volume 83.2 fL (80.0-98.0); Mean Platelet Volume 10.2 fL (9.4-12.3); Monocytes Absolute Auto 0.1 X10*3/uL (0.1-1.2); Monocytes Percent Auto 1.4 % (2-11); Neutrophils Absolute Auto 4.4 x10*3/uL (2.0-8.3); Neutrophils Percent Auto 89.7 % (45-73); Platelet Count 269 X10*3/uL (160-400); Red Blood Count 4.93 X10*6/uL (4.20-5.50); Red Cell Distribution Width 12.5 % (11.0-16.0); White Blood Count 4.9 X10*3/uL (4.8-10.8)
[2022-12-23 07:40] LABS: Anion Gap 14 (12-20); Blood Urea Nitrogen 4 mg/dL (9-16); Calcium 8.9 mg/dL (8.4-10.2); Carbon Dioxide 20 mmol/L (22-29); Chloride 105 mmol/L (96-108); Creatinine Clr Calc Pharmacy 124.3; Estimated Glomerular Filt Rate > 60; Glucose Random 128 mg/dL (60-115); Potassium 4.3 mmol/L (3.3-5.1); Sodium 135 mmol/L (135-145)
--- NOTE | 2022-12-23 09:05 | MHC.CM.PN ---
pt dcd home no skilled services ordered by
--- NOTE | 2022-12-23 10:00 | HO.POSTANES ---
Post Anesthesia Evaluation Post Anesthesia Evaluation Date of Service: 12/23/22 Vital Signs: Vital Signs Temp Pulse Resp BP Pulse Ox O2 Del Method 12/23/22 07:07 98.1 F 78 17 123/64 96 Room Air 12/23/22 04:00 96.8 F 71 18 137/77 95 Room Air 12/22/22 23:25 97.4 F 81 18 126/75 97 Room Air Anesthesia: General Endotracheal-GETA Mental Status: Awake Pain Control: Satisfactory (mild incisional pain) Nausea/Vomiting: None Hydration: Adequate Anesthesia-Related Issues: No Anes. Related Issues
== END 2022-12-23 16:15 | disposition home or self-care (01) | DRG 403 ==
LOC: HO.SSSA 12:11 → HO.S3 17:25
PROVIDERS: Nurse Practitioner; Physician Assistant Surgical; Admitting Provider Surgery; PCP Nurse Practitioner Family; Visit Provider Surgery
PROC: 0DB64Z3 Excision of Stomach, Percutaneous Endoscopic Approach, Vertical (ICD-10-PCS; CPT 43845; principal; 2022-12-22 14:20)
DX: E66.01 Morbid (severe) obesity due to excess calories (principal); K76.0 Fatty (change of) liver, not elsewhere classified; Q43.3 Congenital malformations of intestinal fixation; M54.9 Dorsalgia, unspecified; Z68.41 Body mass index [BMI] 40.0-44.9, adult
CPT/HCPCS: 36415; 80048; 80053; 80061; 81025; 83036; 83525; 84443; 85014; 85018; 85025; 85610; 85730; 86140; 86850; 86900; 86901; 88307; 88342; A4649; C9088; C9145; J0131; J0690; J1100; J1170; J2250; J2371; J2405; J2795; J3010

== ENCOUNTER → 2022-12-22 12:06 | Outpatient (BNV) | payer OTHER, SELFPAY | PROVIDERS: Admitting Provider Surgery; PCP Nurse Practitioner Family; Visit Provider Surgery | DX: E66.01 Morbid (severe) obesity due to excess calories (principal); Z68.41 Body mass index [BMI] 40.0-44.9, adult | CPT/HCPCS: 43659; 43775; 99024 ==

== ENCOUNTER 2022-12-28 12:32 | Outpatient (AMB) | payer OTHER, SELFPAY ==
--- NOTE | 2022-12-28 13:27 | A.OFFVIS_ITS ---
Intake VS Expanded 12/28/22 13:34 Height 5 ft 0.5 in Weight 191 lb 3.2 oz BMI 36.7 BP 125/67 Blood Pressure Location Rt brachial Blood Pressure Position Sitting Pulse 110 H Pulse Source Pulse Oximeter Temp 98.2 F Temperature Source Temporal Artery Scan Pulse Oximetry 98 Oxygen Delivery Method Room Air Body Fat 90.4 Body Fat Percentage 47.3 Free Fat Mass 100.8 Muscle Mass 95.6 Visceral Mass 10.0 Water Mass 72.6 BMR 1,477 Intake Visit Reasons: (OV) 6 Days PO LSG 12/22/22 Allergies egg yolk [EGG YOLK] Allergy (Unknown, Verified 12/22/22 12:27) ITCHY EYES oak [OAK] Allergy (Unknown, Verified 12/22/22 12:27) ITCHY EYES FROM OAK TREES HPI HPI Comments History of Present Illness Details 27 yo female pod 6 s/p LSG on 12/22/[address] Jane rashida 3 celebrate 4 in 1 shakes w 1 scoop each but doesn't like anymore, previously using Orgain and will discuss w Dr Bethea 16 oz additional water Pos BM No sig pain PFSH Medical History (Updated 12/22/22 @ 14:33 by Quan Jane MD) Back pain Morbid obesity Surgical History Hx of breast reduction, elective Hx of section Hx of tonsillectomy Hx of wisdom tooth extraction Family History Mother No problems noted. Father Hypertension Sister No problems noted. Sister No problems noted. Brother No problems noted. Daughter No problems noted. Social History Household Members: Family Housing: Apartment Are you a primary critical care registered nurse to a significant other at home: Yes Do you presently have visiting nurse or other home services: No Alcohol intake: never Patient Tobacco Use Status: Never used Tobacco Physical Exam GI Other: mild bruising, nc/d/i Assessment & Plan Assessment & Plan (1) S/P laparoscopic sleeve gastrectomy: Code(s): Z98.84 - Bariatric surgery status Plan: POD 6 s/p LSG on 12/22/[address] Sanders Weight loss prior to surgery was 12.1 pounds or 5.5% TBWL. Original weight on 09/13/22 was 218.4 pounds and op weight was 206.3 pounds. Be sure to text Dr Jane exactly 1 week after surgery your weight from your home scale so he can adjust your meal plan. Continue meal plan until f/u w [facility] in 2 weeks May shower, no submersion in bath for another week Continue abdominal binder with activity and exercise for the next 2 weeks. Exercise prior to surgery was stationary bike, may resume slowly starting tomorrow No abdominal exercises for 6 weeks post operatively Will be emailed link to post op video for review Reminded of the pace of drinking, 2 mL per minute, 1 oz/15 min. Coding Level of Care Code Global (86138) Diagnoses S/P laparoscopic sleeve gastrectomy Z98.84
[2022-12-28 13:34] VITALS: BP 125/67; PULSE 110; TEMP 36.8; O2SAT 98; BMI 36.7
== END 2022-12-28 14:03 | disposition home or self-care (01) ==
PROVIDERS: PCP Nurse Practitioner Family; Visit Provider Physician Assistant Surgical
DX: Z98.84 Bariatric surgery status (principal)
CPT/HCPCS: 99024

== ENCOUNTER → 2022-12-28 12:32 | Outpatient (BNVA) | payer OTHER, SELFPAY | PROVIDERS: PCP Nurse Practitioner Family; Visit Provider Physician Assistant Surgical ==

== ENCOUNTER 2023-01-18 09:57 | Outpatient (AMB) | payer OTHER, SELFPAY ==
--- NOTE | 2023-01-18 09:57 | A.OFFVIS_ITS ---
Intake VS Expanded 01/18/23 10:03 Height 5 ft 0.5 in Weight 187 lb 9.6 oz BMI 36.0 BP 112/53 L Blood Pressure Location Lt brachial Blood Pressure Position Sitting Respiratory Rate 16 Pulse 62 Pulse Source Pulse Oximeter Temp 98.6 F Temperature Source Temporal Artery Scan Pulse Oximetry 97 Oxygen Delivery Method Room Air Body Fat 83.6 Body Fat Percentage 44.6 Free Fat Mass 103.8 Muscle Mass 98.6 Visceral Mass 9.0 Water Mass 74.8 BMR 1,502 Intake Visit Reasons: (OV) 26 Days PO LSG 12/22/22 Retail Department Manager Required: No Allergies egg yolk [EGG YOLK] Allergy (Unknown, Verified 01/18/23 10:02) ITCHY EYES oak [OAK] Allergy (Unknown, Verified 01/18/23 10:02) ITCHY EYES FROM OAK TREES Medication List - Last Reconciled 01/18/23 by MAYRA Magana [celebrate mvi PO] pantoprazole 40 mg PO DAILY sucralfate 10 mL PO BID HPI HPI Comments History of Present Illness Details This?a?27?yo female who is s/p LSG without hiatal hernia repair on?12/22/22. Presents for 4 week post op visit. Weight today is 187.6 pounds, with a BMI of 36. There has been a 30.8 pound weight loss,(initial weight 218.4 pounds) since starting the program on 09/13/22 reflecting a 14.1% total body weight loss and a weight loss of 18.7 pounds since surgery (operative weight 206.3 pounds) reflecting a 9% TBWL since surgery. No complaints of nausea, emesis, abdominal pain or reflux. Reports infrequent but normal bowel movements every 2-3 days and uses stool softeners regularly. Weight loss prior to surgery was 12.1 pounds or 5.5% TBWL. Original weight on 09/13/22 was 218.4 pounds and op weight was 206.3 pounds Present meal plan includes: 2 Orgain shakes 1 scoop each w 8 oz unsw eetened almond milk, 9-11 am, 2-4 pm 1 ZP bar, 5-8 pm drinkin oz water ? Exercise routine includes: not much due to day care issues, planning to go to the gym in the afternoon when dad gets home. [facility] Medical History Back pain Morbid obesity Surgical History Hx of wisdom tooth extraction Hx of tonsillectomy Hx of breast reduction, elective Hx of section Family History Mother No problems noted. Father Hypertension Sister No problems noted. Sister No problems noted. Brother No problems noted. Daughter No problems noted. Social History Household Members: Family Housing: Apartment Are you a primary out of school hours care worker to a significant other at home: Yes Do you presently have visiting nurse or other home services: No Alcohol intake: never Patient Tobacco Use Status: Never used Tobacco Physical Exam Vital Signs: Last Vital Signs Temp 98.6 F 01/18/23 10:03 Pulse 62 01/18/23 10:03 Resp 16 01/18/23 10:03 BP 112/53 L 01/18/23 10:03 Pulse Ox 97 01/18/23 10:03 Oxygen Delivery Method Room Air 01/18/23 10:03 BMI result Body Mass Index 36.0 GI Inspection: Yes incision (c/d/i) Assessment & Plan Assessment & Plan (1) Obesity: Code(s): E66.9 - Obesity, unspecified Plan: change meal plan to: 2 Orgain shakes 2 scoops each w 8 oz unsweetened almond milk, 9-11 am, 2-4 pm 1 ZP bar, 5-8 pm increase water intake to 3 water bottles daily (48 oz) Return to exercise with a goal of 300 calories daily Buy Levy+D celebrate chews and have 1 twice daily May also get a fiber gummy one daily at any store. RTC 1 month Coding Level of Care Code Global (20713) Diagnoses Obesity E66.9
[2023-01-18 10:03] VITALS: BP 112/53; PULSE 62; RESP 16; TEMP 37; O2SAT 97; BMI 36.0
== END 2023-01-18 10:53 | disposition home or self-care (01) ==
PROVIDERS: PCP Nurse Practitioner Family; Visit Provider Physician Assistant Surgical
DX: E66.9 Obesity, unspecified (principal); Z68.36 Body mass index [BMI] 36.0-36.9, adult
CPT/HCPCS: 99024

== ENCOUNTER → 2023-01-18 09:57 | Outpatient (BNVA) | payer OTHER, SELFPAY | PROVIDERS: PCP Nurse Practitioner Family; Visit Provider Physician Assistant Surgical ==

== ENCOUNTER 2023-01-18 13:40 | Outpatient (AMB) | payer OTHER, SELFPAY ==
--- NOTE | 2023-01-18 13:51 | A.OFFPC_ITS ---
Vital Signs 01/18/23 13:52 Height 5 ft 0.5 in Weight 190 lb 2 oz BMI 36.5 BP 104/68 Blood Pressure Location Lt brachial Position Sitting Pulse 78 Pulse Source Pulse Oximeter Pulse Oximetry (%) 97 Oxygen Delivery Method Room Air Intake Visit Reasons: Annual Pe Allergies egg yolk [EGG YOLK] Allergy (Unknown, Verified 01/18/23 13:54) ITCHY EYES oak [OAK] Allergy (Unknown, Verified 01/18/23 13:54) ITCHY EYES FROM OAK TREES Tobacco use date assessed: 01/18/23 Dental Screening Dental Screen Date: 01/18/23 Did you have a dental visit in the last 12 months?: Yes Did you have a dental problem in the last 6 months where you did not have access to dental care?: No Was dental information given to patient?: Patient has dentist HPI Annual Pe HPI Details New pt is here for a PE. Will order labs. Pt does not have a systems programmer analyst, will refer. pt reports fungus to her feet, and sometimes to her upper torso. sending ketoconazole. [facility] Medical History Back pain Morbid obesity Surgical History Hx of wisdom tooth extraction Hx of tonsillectomy Hx of breast reduction, elective Hx of section Family History Mother No problems noted. Father Hypertension Sister No problems noted. Sister No problems noted. Brother No problems noted. Daughter No problems noted. Paternal Uncle Mental health disorder Substance use disorder Social History Household Members: Family Housing: Apartment Are you a primary caregivers non medical to a significant other at home: Yes Do you presently have visiting nurse or other home services: No Alcohol intake: never Patient Tobacco Use Status: Never used Tobacco e-Cigarette/Vaping Use: Never Used Second Hand Smoke Exposure: No service: No Current occupational status: unemployed Cognitive needs: No Hearing needs: No Vision needs: No Questionnaire PHQ-9 Over the last 2 weeks, how often have you been bothered by any of the following problems? 1. Little interest or pleasure in doing things: not at all 2. Feeling down, depressed, or hopeless: not at all 3. Trouble falling or staying asleep, or sleeping too much: not at all 4. Feeling tired or having little energy: not at all 5. Poor appetite or overeating: not at all 6. Feeling bad about yourself - or that you are a failure or have let yourself or your family down: not at all 7. Trouble concentrating on things, such as reading the newspaper or watching television: not at all 8. Moving or speaking so slowly that other people could have noticed. Or the opposite - being so fidgety or restless that you have been moving around a lot more than usual: not at all 9. Thoughts that you would be better off or of hurting yourself in some way: not at all Total score: 0 Source: Developed by Drs. Charly Lay, Melly Ocampo, Darryl Sawyre and colleagues, with an educational jana from [employer]. Thrive Questionnaire Date Thrive assessed: 01/18/23 I am a: Patient What is your living situation today?: I have a steady place to live Within the past 12 months, did the food you bought not last and you didn't have the money to get more?: Never true Within the past 12 months, did you worry whether your food would run out before you got money to buy more?: Never true Do you have trouble paying for medicines?: No Do you have trouble getting transportation to medical appointments?: No Do you have trouble paying your heating and electricity bill?: No Do you have trouble taking care of your child, family member or friend?: No Do you have trouble with day-to-day activities such as bathing, preparing meals, shopping, managing finances, etc.?: No Are you currently unemployed and looking for a job?: No Are you interested in more education?: No AUDIT C Alcohol Use Questionnaire (AUDIT-C) 1. How often do you have a drink containing alcohol?: Never Total Score: 0 KASSIE-7 AMB Questionnaire KASSIE-7 Date KASSIE - 7 assessed: 01/18/23 Feeling nervous, anxious, or on edge: 0 = Not at all Not being able to stop or control worryin = Not at all Worrying too much about different things: 0 = Not at all Trouble relaxin = Not at all Being so restless that it is hard to sit still: 0 = Not at all Becoming easily annoyed or irritable: 0 = Not at all Feeling afraid as if something awful might happen: 0 = Not at all Total KASSIE-7 score (0-4 normal; 5-9 mild; 10-14 moderate; 15-21 severe): 0 Source: Developed by Drs. Charly Lay, Melly Ocampo, Darryl Sawyer and colleagues, with an educational jana from [employer]. Review of Systems Const Denies chills and Denies fever(s) Eyes Denies blurry vision ENT Denies vertigo, Denies dizziness and Denies sore throat Card Denies chest pain at rest, Denies chest pain with activity, Denies diaphoresis, Denies dyspnea and Denies dyspnea on exertion Resp Denies cough, Denies dyspnea, Denies dyspnea on exertion and Denies wheezing GI Denies abdominal pain, Denies melena, Denies hematochezia, Denies constipation, Denies diarrhea and Denies loose stools Denies hematuria Musc Denies numbness and Denies tingling Skin/Breast Denies lesions Neuro Denies vertigo, Denies dizziness, Denies numbness and Denies tingling Psych Denies anxiety, Denies depression, Denies homicidal ideation, Denies suicidal ideation and Denies other (substance abuse) Aller/Immun Denies wheezing Physical exam (Primary Care) Vital Signs: Last Vital Signs Pulse 78 01/18/23 13:52 BP 104/68 01/18/23 13:52 Pulse Ox 97 01/18/23 13:52 Oxygen Delivery Method Room Air 01/18/23 13:52 BMI result Body Mass Index 36.5 Tobacco/Smoking Status: Tobacco use Status Tobacco use date assessed 01/18/23 01/18/23 13:58 Patient Tobacco Use Status Never used Tobacco 01/18/23 13:58 e-Cigarette/Vaping Use Never Used 01/18/23 13:58 PHQ-9: PHQ-9 Score PHQ-9: Total score 0 01/18/23 14:17 Thrive Assessment: Date of Thrive Assessment Date Thrive assessed 09/19/23 09/19/23 14:03 Const General: cooperative Nutritional Appearance: obese Orientation/consciousness: patient oriented x3 HENMT Head: Yes normal to inspection, Yes normocephalic and Yes atraumatic Ears: TM's normal bilaterally Eyes General: appearance normal, both eyes and all related structures Alignment and Position: alignment normal and position normal Neck Neck: Yes normal visual inspection and Yes no lymphadenopathy Thyroid: Thyroid normal Resp Effort & Inspection: normal respiratory effort Auscultation: clear to auscultation bilaterally Cardio Rate: regular rate Rhythm: regular rhythm Heart sounds: S1 normal heart sound present, S2 normal heart sound present and no murmurs GI Palpation (GI): Soft to palpation and nontender Auscultation: normal bowel sounds Skin Other: in between toes with faint whitish excoriation Rashes: no rashes Neuro General: patient oriented x3, moves all extremities, no focal motor deficits and deep tendon reflexes 2+ bilaterally Romberg Test: Negative Psych Appearance: grossly normal Mental Status: mental status grossly normal Speech and movement: Normal speech and movement present Affect: normal affect Attitude: cooperative Thought process: Normal thought process present Thought content: Normal thought content present Insight: Good insight present (Psych) Judgement: Good judgement present (Psych) Assessment and Plan Assessment & Plan (1) Physical exam: Code(s): Z00.00 - Encounter for general adult medical examination without abnormal findings Plan: Labs ordered (2) Screening for cervical cancer: Code(s): Z12.4 - Encounter for screening for malignant neoplasm of cervix Plan: Referred to systems programmer analyst (3) Tinea pedis: Code(s): B35.3 - Tinea pedis Plan The patient agreed to the use of a director of graduate medical education for this encounter. Scribed for LEVAR Acosta by Vicenta Benitez director of graduate medical education, on 01/18/2023 at 14:05 EST. Orders: Orders Comprehensive [place]. Panel Fast Today Z00.00 - Encounter for general adult medical examination without abnormal findings TSH reflex Free T4 Today Z00.00 - Encounter for general adult medical examination without abnormal findings UA CC w/rflx Micro + Cult Today Z00.00 - Encounter for general adult medical examination without abnormal findings Lipid Panel Today Z00.00 - Encounter for general adult medical examination without abnormal findings Comprehensive Met. Panel Today Z00.00 - Encounter for general adult medical examination without abnormal findings Complete Blood Count Auto Diff Today Z00.00 - Encounter for general adult medical examination without abnormal findings Referrals TRUCK MECHANIC APPRENTICE Referral Z12.4 - Encounter for screening for malignant neoplasm of cervix Medications: New ketoconazole 2% 1 appl topical DAILY 60 grams 0RF Coding Level of Care Code New Pt Prev Care 18-39yr([id number] Diagnoses Physical exam Z00.00 Screening for cervical cancer Z12.4 Tinea pedis B35.3
[2023-01-18 13:52] VITALS: BP 104/68; PULSE 78; O2SAT 97; BMI 36.5
== END 2023-01-18 14:59 | disposition home or self-care (01) ==
PROVIDERS: PCP Nurse Practitioner Family; Visit Provider Nurse Practitioner Family
DX: Z00.00 Encounter for general adult medical examination without abnormal findings (principal); Z12.4 Encounter for screening for malignant neoplasm of cervix; B35.3 Tinea pedis
CPT/HCPCS: 99385

== ENCOUNTER 2023-01-20 10:55 | Outpatient (REF) | payer OTHER, SELFPAY ==
[2023-01-20 13:11] LABS: MANUAL DIFF FLAG NO
[2023-01-20 13:23] LABS: Eosinophils Absolute Auto 0.1 X10*3/uL (0.0-0.4); Eosinophils Percent Auto 2.6 % (0-4); Hematocrit 41.2 % (37.0-47.0); Hemoglobin 13.7 g/dl (12.0-16.0); Lymphocytes Absolute Auto 1.2 X10*3/uL (1.2-4.9); Lymphocytes Percent Auto 38.4 % (20-40); Mean Corpuscular HGB Conc 33.3 g/dl (31.0-35.0); Mean Corpuscular Volume 84.1 fL (80.0-98.0); Mean Platelet Volume 11.4 fL (9.4-12.3); Monocytes Absolute Auto 0.5 X10*3/uL (0.1-1.2); Monocytes Percent Auto 15.4 % (2-11); Neutrophils Absolute Auto 1.3 x10*3/uL (2.0-8.3); Neutrophils Percent Auto 42.6 % (45-73); Platelet Count 232 X10*3/uL (160-400); Red Cell Distribution Width 13.7 % (11.0-16.0); White Blood Count 3.1 X10*3/uL (4.8-10.8)
[2023-01-20 13:33] LABS: Alanine Aminotransferase 51 U/L (0-31); Albumin Level 3.8 g/dL (3.5-5.0); Alkaline Phosphatase 52 U/L (39-117); Anion Gap 16 (12-20); Aspartate Amino Transferase 53 U/L (5-31); Bilirubin Total 0.4 mg/dL (0.0-1.0); Blood Urea Nitrogen 8 mg/dL (9-16); Carbon Dioxide 28 mmol/L (22-29); Chloride 102 mmol/L (96-108); Cholesterol 186 mg/dL (<200); Estimated Glomerular Filt Rate > 60; Glucose Fasting 77 mg/dL (60-99); Glucose Random 76 mg/dL (60-115); HDL Cholesterol 34 mg/dL (>40); LDL Cholesterol Calculated 136 mg/dL (<100); Potassium 3.5 mmol/L (3.3-5.1); Sodium 142 mmol/L (135-145); Total Protein 6.8 g/dL (6.5-8.0); Triglycerides 81 mg/dL (<150)
[2023-01-20 13:53] LABS: TSH reflex Free T4 3.66 uIU/mL (0.32-4.0)
[2023-01-20 13:54] LABS: Appearance Urine Turbid; Color Urine Dark Yellow; Glucose Urine UA Negative (Negative); Leukocyte Esterase Urine Trace (Negative); Nitrite Urine Negative (Negative); Specific Gravity - Urine >= 1.030 (1.005-1.025); UMIC TRIGGER UACC YES; Urine Blood Large (3+) (Negative); Urine Ketones >=160 mg/dL (Negative); Urine Protein 30 (1+) mg/dL (Neg-Trace)
[2023-01-20 14:08] LABS: Bacteria Urine None Seen (None Seen); Hyaline Casts Urine 0-2 /LPF (0-2); UACC Culture Trigger YES
== END 2023-01-20 10:56 | disposition home or self-care (01) ==
LOC: HO.HMGCLDS 10:55
PROVIDERS: PCP Nurse Practitioner Family; Visit Provider Nurse Practitioner Family
DX: Z00.00 Encounter for general adult medical examination without abnormal findings (principal)
CPT/HCPCS: 36415; 80053; 80061; 81001; 84443; 85025; 87086; 87147

== ENCOUNTER 2023-02-03 07:42 | Outpatient (REF) | payer OTHER, SELFPAY | END 2023-02-03 07:43 | disposition home or self-care (01) | LOC: HO.US 07:42 | PROVIDERS: PCP Nurse Practitioner Family; Visit Provider Nurse Practitioner Family | DX: R74.8 Abnormal levels of other serum enzymes (principal) | CPT/HCPCS: 36415; 81001; 81003; 86704; 86706; 86709; 86803; 87086; 87340 ==

== ENCOUNTER 2023-02-18 12:02 | Outpatient (AMB) | payer OTHER, SELFPAY ==
[2023-02-18 10:53] VITALS: BMI 33.8
--- NOTE | 2023-02-18 10:53 | MHC.OFFVISWM ---
Intake VS Expanded 02/18/23 10:53 Height 5 ft 0.5 in Weight 176 lb 3.2 oz BMI 33.8 Body Fat % 42.5 Muscle Mass/Score 95.2 Basal Metabolic Rate/Score 1,362 Intake Visit Reasons: VIDEO PO LSG 12/22/22 Allergies egg yolk [EGG YOLK] Allergy (Unknown, Verified 01/18/23 13:54) ITCHY EYES oak [OAK] Allergy (Unknown, Verified 01/18/23 13:54) ITCHY EYES FROM OAK TREES HPI HPI Comments History of Present Illness Details This?a?27?yo female who is s/p LSG without hiatal hernia repair on?12/22/22. Presents for 8 week post op visit. Weight today is 176.2 pounds, with a BMI of 33.8. There has been a 42.2 pound weight loss,(initial weight 218.4 pounds) since starting the program on 09/13/22 reflecting a 19.3% total body weight loss and a weight loss of 30.1 pounds since surgery (operative weight 206.3 pounds) reflecting a 14.5% TBWL since surgery. No complaints of nausea, emesis, abdominal pain or reflux. Reports infrequent but normal bowel movements every 2-3 days and uses stool softeners regularly. Patient presented to [facility] emergency room in late December with sharp left-sided abdominal pain. Workup revealed stone within the left ureter, 2-3 mm. She was asymptomatic by the time she left the emergency room and was given a strainer to strain her urine and a recommendation for follow-up with [facility]. She passed the stone and has been fine since. No further pain, No urology appt yet. She has been followed by PCP. taking Levy+D celebrate chews and have 1 twice daily Present meal plan includes: 2 Orgain shakes 2 scoops each w 8 oz unsweetened almond milk, 9-11 am, 2-4 pm 1 ZP bar, 5-8 pm increased water intake to 3 water bottles daily (48 oz) Exercise routine includes: videos at home 15 minutes 3 x per day, will join gym [facility] Medical History Back pain Morbid obesity Surgical History Hx of wisdom tooth extraction Hx of tonsillectomy Hx of breast reduction, elective Hx of section Family History Mother No problems noted. Father Hypertension Sister No problems noted. Sister No problems noted. Brother No problems noted. Daughter No problems noted. Paternal Uncle Mental health disorder Substance use disorder Social History Household Members: Family Housing: Apartment Are you a primary post acute care nurse practitioner to a significant other at home: Yes Do you presently have visiting nurse or other home services: No Alcohol intake: never Patient Tobacco Use Status: Never used Tobacco e-Cigarette/Vaping Use: Never Used Second Hand Smoke Exposure: No service: No Current occupational status: unemployed Cognitive needs: No Hearing needs: No Vision needs: No Assessment & Plan Assessment & Plan (1) Obesity: Code(s): E66.9 - Obesity, unspecified Plan: willing to continue meal plan for now and join gym. Plan on re-introducing food at next visit in 4 weeks continue to text weights wednesdays text with any questions or concerns Telehealth Telehealth Location of provider rendering services: practice address Location of patient: address on file Patient Identification confirmed using: Name, : Yes Telehealth method: video Patient verbally consented to treatment: Yes Patient verbally consented to billing insurance company: Yes Patient informed of any privacy concerns related to visit: Yes Minutes spent on Phone/Video with Pt.: 15 Coding Level of Care Code Global (72135) Diagnoses Obesity E66.9
== END 2023-02-18 12:12 | disposition home or self-care (01) ==
LOC: HO.HBS 12:02
PROVIDERS: PCP Nurse Practitioner Family; Visit Provider Physician Assistant Surgical
DX: E66.9 Obesity, unspecified (principal); Z68.33 Body mass index [BMI] 33.0-33.9, adult
CPT/HCPCS: 99024

== ENCOUNTER → 2023-02-18 12:02 | Outpatient (BNVA) | payer OTHER, SELFPAY | PROVIDERS: PCP Nurse Practitioner Family; Visit Provider Physician Assistant Surgical ==

== ENCOUNTER 2023-03-03 05:07 | Emergency (ER) | payer OTHER, SELFPAY ==
[2023-03-03 05:10] VITALS: BP 130/74; PULSE 68; RESP 18; TEMP 36.2; O2SAT 95; BMI 33.8
[2023-03-03 05:29] LABS: Basophils Percent Auto 0.2 % (0-2); Hemoglobin 14.1 g/dl (12.0-16.0); Imm Gran Abs Auto 0.02 X10*3/uL (0.00-0.03); Imm Gran Pct Auto 0.3 % (0.0-0.4); Lymphocytes Absolute Auto 0.4 X10*3/uL (1.2-4.9); Lymphocytes Percent Auto 6.7 % (20-40); MANUAL DIFF FLAG SCAN; Mean Corpuscular HGB Conc 33.6 g/dl (31.0-35.0); Mean Corpuscular Hemoglobin 28.4 pg (27.0-33.0); Mean Corpuscular Volume 84.5 fL (80.0-98.0); Mean Platelet Volume 10.1 fL (9.4-12.3); Monocytes Absolute Auto 0.2 X10*3/uL (0.1-1.2); Monocytes Percent Auto 2.6 % (2-11); Neutrophils Absolute Auto 5.6 x10*3/uL (2.0-8.3); Neutrophils Percent Auto 90.2 % (45-73); Platelet Count 239 X10*3/uL (160-400); Red Blood Count 4.97 X10*6/uL (4.20-5.50); Red Cell Distribution Width 14.2 % (11.0-16.0); SCAN SMEAR FLAG 1; White Blood Count 6.3 X10*3/uL (4.8-10.8)
[2023-03-03 05:30] LABS: Appearance Urine Clear; Color Urine Yellow; Glucose Urine UA Negative (Negative); Leukocyte Esterase Urine Negative (Negative); Nitrite Urine Negative (Negative); PH 5.5 (5.0-9.0); Specific Gravity - Urine >= 1.030 (1.005-1.025); Urine Blood Negative (Negative); Urine Ketones >=160 mg/dL (Negative); Urine Protein Trace mg/dL (Neg-Trace)
[2023-03-03 05:35] LABS: Bacteria Urine Trace (None Seen); Hyaline Casts Urine 0-2 /LPF (0-2); WBC Urine 0-5 /HPF (0-5)
[2023-03-03 05:42] LABS: Alanine Aminotransferase 32 U/L (0-31); Albumin Level 4.1 g/dL (3.5-5.0); Alkaline Phosphatase 49 U/L (39-117); Anion Gap 16 (12-20); Aspartate Amino Transferase 34 U/L (5-31); Bilirubin Direct 0.2 mg/dL (0.0-0.5); Bilirubin Total 0.6 mg/dL (0.0-1.0); Blood Urea Nitrogen 11 mg/dL (9-16); Calcium 9.6 mg/dL (8.4-10.2); Carbon Dioxide 21 mmol/L (22-29); Chloride 107 mmol/L (96-108); Creatinine Clr Calc Pharmacy 112.5; Estimated Glomerular Filt Rate > 60; Glucose Random 125 mg/dL (60-115); Lipase 15 U/L (8-78); Sodium 140 mmol/L (135-145); Total Protein 7.2 g/dL (6.5-8.0)
[2023-03-03 05:47] LABS: SLIDE REVIEW VERIFIED
[2023-03-03 05:52] VITALS: BP 124/79; PULSE 57; RESP 16; TEMP 36.7; O2SAT 99
--- NOTE | 2023-03-03 06:45 | ED.GENADULT ---
HPI - General Adult General Chief complaint: Abdominal Pain Stated complaint: side pain Time Seen by Provider: 03/03/23 06:27 Source: patient Mode of arrival: ambulatory Limitations: no limitations History of Present Illness HPI narrative: Patient is a 27-year-old female with history of sleeve gastrectomy, , liver steatosis presenting to the emergency department with constant right flank pain since 11pm last night. Patient reports she has seen at [facility] 1 month prior and diagnosed with kidney stones. Was supposed to follow up with [facility] but has not. States she is unsure which side the stones are on. She reports nausea but denies vomiting or diarrhea. Reports that her urine has been darker than normal for the past week. Denies dysuria or frequency. Denies any abdominal pain. Denies recent cough, fever, or shortness of breath. MD complaint: right flank pain Onset (ago): hour(s) Location: right Radiation: non-radiation Severity scale (1-10): 8 Quality: sharp Pain Consistency: constant Relieving factors: none Associated symptoms: nausea/vomiting (reports nausea, denies vomiting) Treatments prior to arrival: none Related Data Home Medications Medication Instructions Recorded Confirmed celebrate mvi PO 01/18/23 01/18/23 Previous Rx's Medication Instructions Recorded pantoprazole 40 mg tablet,delayed 40 mg PO DAILY #30 tabs 12/17/22 release sucralfate 100 mg/mL oral 10 ml PO BID #400 mL 12/17/22 suspension ketoconazole 2 % topical cream 1 appl topical DAILY #60 grams 01/18/23 ondansetron 4 mg disintegrating 4 mg PO Q8H PRN nausea and 03/03/23 tablet vomiting #7 tabs prednisone 20 mg tablet 40 mg (2 x 20 mg) PO DAILY #10 tabs 03/03/23 tamsulosin 0.4 mg capsule 0.4 mg PO DAILY #7 caps 03/03/23 Allergies Allergy/AdvReac Type Severity Reaction Status Date / Time egg yolk [EGG YOLK] Allergy Unknown ITCHY EYES Verified 03/03/23 05:10 oak [OAK] Allergy Unknown ITCHY EYES Verified 03/03/23 05:10 FROM OAK TREES Review of Systems Review of Systems: As per HPI. Yes all other systems are reviewed and are negative Constitutional: Constitutional: Reports as per HPI [facility] Past Medical History Medical History Back pain Morbid obesity Surgical History Hx of wisdom tooth extraction Hx of tonsillectomy Hx of breast reduction, elective Hx of section Family History Family History Mother No problems noted. Father Hypertension Sister No problems noted. Sister No problems noted. Brother No problems noted. Daughter No problems noted. Paternal Uncle Mental health disorder Substance use disorder Social History Social History Household Members: Family Housing: Apartment Are you a primary technical healthcare consultant to a significant other at home: Yes Do you presently have visiting nurse or other home services: No Alcohol intake: never Patient Tobacco Use Status: Never used Tobacco Smoked in Last 30 Days: No e-Cigarette/Vaping Use: Never Used Second Hand Smoke Exposure: No Use of substances other than those prescribed or required for medical reasons: No Advance Directives: No Advance Directives Information Provided: Yes Patient : No service: No Current occupational status: unemployed Cognitive needs: No Hearing needs: No Vision needs: No Physical Exam ED Vital Signs: Vital Signs - 24 hr 03/03/23 05:10 03/03/23 05:52 Temperature 97.2 F 98.0 F Pulse Rate 68 57 Respiratory Rate 18 16 Blood Pressure 130/74 124/79 Pulse Oximetry 95 99 Oxygen Delivery Method Room Air Room Air BMI result Body Mass Index 33.8 Vital signs have been reviewed and appear to be correct. Blood pressure normal. Heart rate normal. Respiratory rate normal. Temperature normal. Oxygen saturation normal. Const General: cooperative, healthy appearing and no acute distress Orientation/consciousness: oriented to person, oriented to place, oriented to time and patient oriented x3 Limitations: no limitations HENMT Head: Yes normocephalic and Yes atraumatic Ears: external ears normal General nose exam: Normal external nose present Face and sinus: Yes face symmetric Mouth: oropharynx normal and moist mucous membranes Throat: Yes uvula midline Eyes Pupils: Equal, round and reactive pupils present Neck Neck: Yes normal visual inspection and Yes supple Resp Effort & Inspection: normal respiratory effort and able to speak in complete sentences Auscultation: clear to auscultation bilaterally Cardio Rate: regular rate Rhythm: regular rhythm Heart sounds: S1 normal heart sound present and S2 normal heart sound present GI Palpation (GI): Soft to palpation and nontender Auscultation: normoactive bowel sounds General: Yes no CVA tenderness Back/Spine/Pelvis Back: no CVA tenderness Skin General skin exam: elasticity normal and turgor normal Neuro General: oriented to person, oriented to place, oriented to time, patient oriented x3, moves all extremities, no focal motor deficits and CN's II-XI intact bilaterally Cranial nerves: Yes Equal, round and reactive pupils present Cognition (Neuro): normal cognition Extrem General: Yes full ROM, Yes no pedal edema and Yes no calf tenderness Psych Mental Status: mental status grossly normal Affect: normal affect Thought process: Normal thought process present Medications Administered Discontinued Medications Generic Name Dose Route Start Last Admin Trade Name Freq PRN Reason Stop Dose Admin Sodium Chloride 1,000 mls @ 999 mls/hr 03/03/23 07:00 03/03/23 07:27 Ns IV 03/03/23 08:00 999 mls/hr .Q1H1M CHALRY Administration Ketorolac Tromethamine 15 mg 03/03/23 07:00 03/03/23 07:27 Ketorolac Tromethamine 15 Mg/Ml Vial IVPUSH 03/03/23 07:01 15 mg ONCE ONE Administration Ondansetron HCl 4 mg 03/03/23 07:00 03/03/23 07:26 Ondansetron Hcl 4 Mg/2 Ml Vial IVPUSH 03/03/23 07:01 4 mg ONCE ONE Administration Medical Decision Making Medical Decision Making [facility] Narrative: Patient is a 27-year-old female with history of sleeve gastrectomy, , liver steatosis presenting to the emergency department with constant right flank pain since 11pm last night. On exam patient is awake, A+Ox3, VS WNL, afebrile, normal neurological exam without focal deficits, physical exam findings as above. Given reported symptoms and physical exam findings, initial differential includes UTI/pyelonephritis, renal colic. Do not suspect pneumonia. Labs notable for no leukocytosis, no evidence of LUIS ENRIQUE, mild elevation of LFTs which appears improved from prior labs in December. No evidence of infection on UA, 3-5 RBCs. Plab: IV fluids, medicate for pain and nausea, obtain records from [facility], reassess Records from [facility] visit on 01/23/2023 obtained which showed nonobstructing 3mm stone in right kidney on CT at that time. Patient reports improvement in pain and nausea after medications. Discussed case with Dr. Almaraz who agrees additional imaging is not indicated at this time. Will discharge home with tamsulosin, prednisone, and ondansetron and refer to urology. Patient states she would prefer to see urology at [facility] as all her other providers are here. Return precautions discussed at bedside. Patient verbalized understanding of and agreement with plan. Differential Diagnosis Differential Diagnoses: The differential diagnosis associated with the presentation includes As per MDM. Lab Data [facility] Lab Attestation statement: I reviewed the patient's lab results. As per MDM. 03/03/23 05:21 03/03/23 05:21 Labs: Lab Results 03/03/23 03/03/23 Range/Units 05:21 05:22 WBC 6.3 (4.8-10.8) X10*3/uL RBC 4.97 (4.20-5.50) X10*6/uL Hgb 14.1 (12.0-16.0) g/dl Hct 42.0 (37.0-47.0) % MCV 84.5 (80.0-98.0) fL MCH 28.4 (27.0-33.0) pg MCHC 33.6 (31.0-35.0) g/dl RDW 14.2 (11.0-16.0) % Plt Count 239 (160-400) X10*3/uL MPV 10.1 (9.4-12.3) fL Immature Gran % (Auto) 0.3 (0.0-0.4) % Neut % (Auto) 90.2 H (45-73) % Lymph % (Auto) 6.7 L (20-40) % Isabella % (Auto) 2.6 (2-11) % Eos % (Auto) 0.0 (0-4) % Baso % (Auto) 0.2 (0-2) % Lymph # (Auto) 0.4 L (1.2-4.9) X10*3/uL Isabella # (Auto) 0.2 (0.1-1.2) X10*3/uL Eos # (Auto) 0.0 (0.0-0.4) X10*3/uL Baso # (Auto) 0.0 (0.0-0.2) X10*3/uL Abs Immat Gran (auto) 0.02 (0.00-0.03) X10*3/uL Absolute Neuts (auto) 5.6 (2.0-8.3) x10*3/uL Absolute Nucleated RBC 0.000 (0.0-0.012) X10*3/uL Nucleated RBC % (auto) 0.0 (0.0-0.2) /100WBC Smear Tech's Comments VERIFIED Sodium 140 (135-145) mmol/L Potassium 4.0 (3.3-5.1) mmol/L Chloride 107 (96-108) mmol/L Carbon Dioxide 21 L (22-29) mmol/L Anion Gap 16 (12-20) BUN 11 (9-16) mg/dL Creatinine 0.69 (0.5-1.4) mg/dL Estim Creat Clear Calc 112.5 Estimated GFR > 60 Random Glucose 125 H (60-115) mg/dL Calcium 9.6 D (8.4-10.2) mg/dL Total Bilirubin 0.6 (0.0-1.0) mg/dL Direct Bilirubin 0.2 (0.0-0.5) mg/dL AST 34 H (5-31) U/L ALT 32 H (0-31) U/L Alkaline Phosphatase 49 (39-117) U/L Total Protein 7.2 (6.5-8.0) g/dL Albumin 4.1 (3.5-5.0) g/dL Lipase 15 (8-78) U/L Urine Color Yellow Urine Appearance Clear Urine pH 5.5 (5.0-9.0) Ur Specific [place] >= 1.030 H (1.005-1.025) Urine Protein Trace (Neg-Trace) mg/dL Urine Glucose (UA) Negative (Negative) mg/dL Urine Ketones >=160 (Negative) mg/dL Urine Blood Negative (Negative) Urine Nitrite Negative (Negative) Ur Leukocyte Esterase Negative (Negative) Urine RBC 3-5 H (0-2) /HPF Urine WBC 0-5 (0-5) /HPF Ur Squamous Epith Cells 6-10 (0-2) /HPF Urine Bacteria Trace (None Seen) Hyaline Casts 0-2 (0-2) /LPF Urine Test NEGATIVE (NEGATIVE) External Record Review External record reviewed: Inpatient record, Office record and Outpatient record Prescription Management I considered prescription management with: Pain Medication and Other Discharge Plan Discharge Clinical Impression: Acute right flank pain Patient Disposition: Home, Self-Care Instructions: Flank Pain (ED) Additional Instructions: You were evaluated in the emergency department today for right flank pain which improved with fluids and medication. Your pain could be related to a kidney stone. You are being referred to urology, please call them to schedule an appointment. You are being prescribed medications, please take these as prescribed. You can take Tylenol 650mg PO every 6 hours as needed for pain. You should follow up with your primary care provider as well. Return to the emergency department if you develop worsening pain, persistent vomiting, fever 100.4F or greater, inability to urinate, or any other concerning symptoms. Prescriptions: New prednisone 20 mg tablet 40 mg PO DAILY Qty: 10 0RF tamsulosin 0.4 mg capsule 0.4 mg PO DAILY Qty: 7 0RF ondansetron 4 mg tablet,disintegrating 4 mg PO Q8H PRN (Reason: nausea and vomiting) Qty: 7 0RF No Action ketoconazole 2 % cream 1 appl topical DAILY Qty: 60 0RF pantoprazole 40 mg tablet,delayed release (DR/EC) 40 mg PO DAILY Qty: 30 2RF sucralfate 100 mg/mL suspension 10 ml PO BID Qty: 400 2RF celebrate mvi PO Referrals: [facility] Services [Provider Group]
[2023-03-03 06:54] LABS: UPreg QC Valid YES; Urine Pregnancy NEGATIVE (NEGATIVE)
[2023-03-03] MEDS: ondansetron HCL 4 MG/2 ML VIAL IVPUSH (07:26)
[2023-03-03] MEDS: 0.9 % Sodium Chloride 1,000 ML 999 ML IV (07:27)
[2023-03-03] MEDS: Ketorolac Tromethamine 15 MG/ML VIAL IVPUSH (07:27)
== END 2023-03-03 09:24 | disposition home or self-care (01) ==
PROVIDERS: Registered Nurse Emergency; Emergency Provider Emergency Medicine
DX: R10.9 Unspecified abdominal pain (principal); R11.2 Nausea with vomiting, unspecified; Z79.899 Other long term (current) drug therapy; Z98.84 Bariatric surgery status
CPT/HCPCS: 36415; 80048; 80076; 81001; 81025; 83690; 85025; 96361; 96374; 96375; 99284; J1885; J2405

== ENCOUNTER 2023-04-15 08:47 | Outpatient (AMB) | payer OTHER, SELFPAY ==
--- NOTE | 2023-04-15 08:53 | MHC.OFFVISWM ---
Intake VS Expanded 04/15/23 09:00 BP 119/58 L Blood Pressure Location Rt brachial Blood Pressure Position Sitting Pulse 71 Pulse Source Pulse Oximeter Temp 97.8 F Temperature Source Temporal Artery Scan Pulse Oximetry 97 Oxygen Delivery Method Room Air Height 5 ft 0.5 in Weight 163 lb 9.6 oz BMI 31.4 Body Fat % 37.9 Body Fat Mass 62.0 Fat Free Mass 101.6 Visceral Fat Rating 6.0 Body Water % 44.7 Body Water Mass 73.2 Muscle Mass/Score 96.6 Basal Metabolic Rate/Score 1,439 Intake Visit Reasons: (OV) PO LSG 12/22/22 Youth Services Librarian Required: No Allergies egg yolk [EGG YOLK] Allergy (Unknown, Verified 04/15/23 08:55) ITCHY EYES oak [OAK] Allergy (Unknown, Verified 04/15/23 08:55) ITCHY EYES FROM OAK TREES Medication List - Last Reconciled 04/15/23 by MAYRA Magana [celebrate mvi PO] ketoconazole 2% 1 appl topical DAILY HPI HPI Comments History of Present Illness Details This?a?27?yo female who is s/p LSG without hiatal hernia repair on?12/22/22. Presents for 4 month post op visit. Weight today is 163.6 pounds, with a BMI of 31.5 There has been a 54.8 pound weight loss,(initial weight 218.4 pounds) since starting the program on 09/13/22 reflecting a 25% total body weight loss and a weight loss of 42.7 pounds since surgery (operative weight 206.3 pounds) reflecting a 20.6% TBWL since surgery. No complaints of nausea, emesis, abdominal pain or reflux. Reports infrequent but normal bowel movements every 2-3 days and uses stool softeners regularly. Patient presented to [facility] emergency room in late December with sharp left-sided abdominal pain. Workup revealed stone within the left ureter, 2-3 mm. She was asymptomatic by the time she left the emergency room and was given a strainer to strain her urine and a recommendation for follow-up with [facility]. She passed the stone and has been fine since. She states that she had right flank pain in March and went to the emergency room. It was felt that this was another stone. She was given medications and discharged home and she feels as though she passed it. She has not yet followed up with [facility] although she intends to do so before her June vacation. taking Levy+D celebrate chews and have 1 twice daily She states she has started eating without guidance or communication, stopped the bar, doesn't want to do orgain shakes, wants to do fairlife Present meal plan includes: 1 HB egg in the morning 2 Orgain shakes 2 scoops each w 8 oz unsweetened almond milk, 12-2 pm, 5-7pm increased water intake to 3 water bottles daily (48 oz) Exercise routine includes: joined PF1-2 x per week, treadmill 30 min, elliptical 30 min not tracking calories. PFSH Medical History Back pain Morbid obesity Surgical History Hx of wisdom tooth extraction Hx of tonsillectomy Hx of breast reduction, elective Hx of section Family History Mother No problems noted. Father Hypertension Sister No problems noted. Sister No problems noted. Brother No problems noted. Daughter No problems noted. Paternal Uncle Mental health disorder Substance use disorder Social History Household Members: Family Housing: Apartment Are you a primary care analyst to a significant other at home: Yes Do you presently have visiting nurse or other home services: No Alcohol intake: never Patient Tobacco Use Status: Never used Tobacco e-Cigarette/Vaping Use: Never Used Second Hand Smoke Exposure: No service: No Current occupational status: unemployed Cognitive needs: No Hearing needs: No Vision needs: No Physical Exam Vital Signs: Last Vital Signs Temp 97.8 F 04/15/23 09:00 Pulse 71 04/15/23 09:00 BP 119/58 L 04/15/23 09:00 Pulse Ox 97 04/15/23 09:00 Oxygen Delivery Method Room Air 04/15/23 09:00 BMI result Body Mass Index 31.4 Const General: healthy appearing and no acute distress Resp Effort & Inspection: normal respiratory effort Auscultation: clear to auscultation bilaterally Cardio Rate: regular rate Rhythm: regular rhythm GI Auscultation: normal bowel sounds Extrem General: Yes normal to inspection Assessment & Plan Assessment & Plan (1) Obesity: Code(s): E66.9 - Obesity, unspecified Plan: Change meal plan: Fair life shake 26 gm another fairlife but only 1/2 w added almond milk meal 6 forks protein and 6 forks veg Discussed the importance of exercise and that she will not achieve her goal without it. Return to clinic for a telephone call in 6 weeks and office visit for six-month follow-up. Coding Level of Care Code Est Pt Level 3 (38725) Diagnoses Obesity E66.9
[2023-04-15 09:00] VITALS: BP 119/58; PULSE 71; TEMP 36.6; O2SAT 97; BMI 31.4
== END 2023-04-15 09:33 | disposition home or self-care (01) ==
PROVIDERS: PCP Nurse Practitioner Family; Visit Provider Physician Assistant Surgical
DX: E66.9 Obesity, unspecified (principal); Z68.31 Body mass index [BMI] 31.0-31.9, adult; Z90.3 Acquired absence of stomach [part of]; Z98.84 Bariatric surgery status
CPT/HCPCS: 99213

== ENCOUNTER → 2023-04-15 08:47 | Outpatient (BNVA) | payer OTHER, SELFPAY | PROVIDERS: PCP Nurse Practitioner Family; Visit Provider Physician Assistant Surgical | DX: E66.9 Obesity, unspecified (principal); Z68.31 Body mass index [BMI] 31.0-31.9, adult | CPT/HCPCS: 99212 ==

== ENCOUNTER 2023-08-25 14:54 | Outpatient (REF) | payer OTHER, SELFPAY ==
[2023-08-26 11:35] LABS: CT PCR NOT DETECTED (Not Detect.); NG PCR NOT DETECTED (Not Detect.)
[2023-08-26 12:50] LABS: BV Int Neg Control Negative (Negative); BV Int Pos Control Positive (Positive)
== END 2023-08-25 14:55 | disposition home or self-care (01) ==
LOC: HO.LAB 14:54
PROVIDERS: PCP Nurse Practitioner Family; Visit Provider Advanced Practice Midwife
DX: Z01.419 Encounter for gynecological examination (general) (routine) without abnormal findings (principal); E66.9 Obesity, unspecified; Z98.891 History of uterine scar from previous surgery; Z98.84 Bariatric surgery status; Z20.2 Contact with and (suspected) exposure to infections with a predominantly sexual mode of transmission
CPT/HCPCS: 0353U; 87480; 87510; 87660; 88142; 99385

== ENCOUNTER 2023-08-25 14:54 | Outpatient (AMB) | payer OTHER, SELFPAY ==
--- NOTE | 2023-08-25 14:57 | MHC.OFFVIS ---
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 Required: No Information Interpreted: clinical only Trauma Manager: Trauma Manager Present Allergies egg yolk [EGG YOLK] Allergy (Unknown, Verified 08/25/23 15:04) ITCHY EYES oak [OAK] Allergy (Unknown, Verified 08/25/23 15:04) ITCHY EYES FROM OAK TREES Medication List - Last Reconciled 08/25/23 by Jackie Baker CNM [celebrate mvi PO] ketoconazole 2% 1 appl topical DAILY Is last menstrual period known: Yes Last menstrual period: 08/06/23 Do you need a note to return to daycare/school/sports/work: No HPI HPI 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 She had baby almost 2 years ago at [facility]. She had her water break 3 days before her due date and they tried inducing her labor and it was well over 24 hours and nothing was happening so she ended up with a . She would very much want to have a vaginal next time. She has not contraceptive thing she is open to . She has not exactly trying either though. She tells me she had gastric sleeve surgery last November and she has lost about 27 lb before the surgery and has lost a lot more since. She says that they have told her that she should lose more and she is starting to think she just wants to lose about 20 lb more. Tells me she is feeling her biological clot tick and does not want her babies too far apart would rather not deliver after age 30. She is taking vitamins. She is starting to work out. She is continuing to try to eat well and small amounts. [facility] Medical History (Updated 08/25/23 @ 16:11 by Jackie Baker CNM) Back pain Morbid obesity Surgical History (Updated 08/25/23 @ 16:02 by Jackie Baker CNM) H/O gastric sleeve Hx of wisdom tooth extraction Hx of tonsillectomy Hx of breast reduction, elective Hx of section Family History Mother No problems noted. Father Hypertension Sister No problems noted. Sister No problems noted. Brother No problems noted. Daughter No problems noted. Paternal Uncle Mental health disorder Substance use disorder Social History Household Members: Family Housing: Apartment Are you a primary director career to a significant other at home: Yes Do you presently have visiting nurse or other home services: No Alcohol intake: never Patient Tobacco Use Status: Never used Tobacco e-Cigarette/Vaping Use: Never Used Second Hand Smoke Exposure: No service: No Current occupational status: unemployed Cognitive needs: No Hearing needs: No Vision needs: No Female Reproductive History Menstrual Age of Menarche: 11 Duration of menses: 3-5 days Date of last menstrual period: 08/06/23 control method: none Total pregnancies: 1 Full term: 1 Date of last pap smear: 09/30/21 (negative,per patient) History of abnormal pap smear: No Physical Exam Vital Signs: Last Vital Signs BP 116/68 08/25/23 15:02 BMI result Body Mass Index 30.1 Const Other: Breast reduction surgery which she regrets she had done she is. Has scars previous and gastric sleeve surgery. Has pannus. General: healthy appearing, comfortable, no acute distress, well developed and alert Nutritional Appearance: average body habitus Orientation/consciousness: patient oriented x3 Limitations: no limitations HEENT Head: Yes normocephalic Neck Neck: Yes normal visual inspection Chest Chest palpation & inspection: normal inspection of the chest Breast/axilla inspection: normal inspection of the breasts and normal inspection of the axillae Breast/axilla palpation: normal palpation of the breasts and normal palpation of the axillae Resp Effort & Inspection: normal respiratory effort GI Inspection: Yes normal to inspection, No Abdominal wall edema and No distended Palpation (GI): Soft to palpation and nontender Other: Vagina is pink slightly dry. Patient denies vaginal itching or soap use in vagina. Cervix nulliparous pink smooth friable with Pap but healthy-appearing uterus small anteverted mobile nontender adnexa nontender good tone Kegel. General: Yes bladder normal to palpation External Female Exam: normal external appearance and normal appearance of the urethra Speculum Exam - Vagina: normal appearance of the vagina, normal palpation and normal vaginal discharge Speculum Exam - Cervix: normal appearance of the cervix, normal palpation and nontender Bimanual exam- vagina & uterus: normal bimanual exam, normal palpation, uterine size normal, bladder normal to palpation, consistency normal, normal palpation, uterine mobility normal, uterine shape normal, No Cervical tenderness present, non-tender and no cervical motion tenderness Bimanual Exam- Adnexa, other: normal adnexae, no masses, normal and No adnexal tenderness Neuro General: patient oriented x3 Results Reviewed Results Reviewed: Patient requested a test and it was negative. Assessment & Plan Assessment & Plan (1) Screening for cervical cancer: Code(s): Z12.4 - Encounter for screening for malignant neoplasm of cervix Category: Medical (2) S/P laparoscopic sleeve gastrectomy: Code(s): Z98.84 - Bariatric surgery status Category: Surgical (3) Hx of section: Comment: 2021 Code(s): Z98.891 - History of uterine scar from previous surgery Category: Surgical (4) control counseling: Code(s): Z30.09 - Encounter for other general counseling and advice on contraception Category: Medical (5) Obesity (BMI 30-39.9): Comment: Says she was 230 lb before starting her weight loss journey and was 203 when she had her gastric sleeve surgery... Code(s): E66.9 - Obesity, unspecified Category: Medical Plan -----Discussed in this visit the following: healthy balanced diet, regular and consistent exercise, getting recommended health screens, doing the best she can for her particular health concerns, kegel exercises, pap smear screening and followup recommendations, mammography screening and SBE, normal changes in cycles in her life stage--- . I actually urged her to try to put off conceiving as long as possible and get as close to the 18 months that is recommended as possible. Discussed that even when she gets to try and eat is clean and lean and carefully as she can so she does not gain much of the weight back and so that all of the nutrition that she takes in can be healthy nutrition and she will have less issues with weight loss after the . Also discussed issues around and where to go for care discussed that we do have a birthing center can not for comprehensive care and that she want to have conversations around wanting to have vaginal after team that would be involved with her delivery so she would definitely want to be meeting with them and so regular basis before just showing up in labor. Also discussed she said her baby did not latch because the nipple kept birthing her nipples remy very well right now she does have a hope of again even though it did not the 1st time and she would blamed the breast reduction surgery for that and she regrets that discussed early latch and that currently her nipples are in good everting condition. She is continuing on her weight loss journey and I recommend she definitely check in with Bariatrics, and be sure that she is on all the right vitamins. She requested that we do a test and it is negative today. Coding Level of Care Code New Pt Prev Care 18-39yr([id number] Diagnoses Screening for cervical cancer Z12.4 S/P laparoscopic sleeve gastrectomy Z98.84 Hx of section Z98.891 control counseling Z30.09 Obesity (BMI 30-39.9) E66.9
[2023-08-25 15:02] VITALS: BP 116/68; BMI 30.1
== END 2023-08-25 16:15 | disposition home or self-care (01) ==
PROVIDERS: PCP Nurse Practitioner Family; Visit Provider Advanced Practice Midwife
DX: Z01.419 Encounter for gynecological examination (general) (routine) without abnormal findings (principal); Z98.84 Bariatric surgery status; E66.9 Obesity, unspecified
CPT/HCPCS: 99385

== ENCOUNTER 2024-10-03 13:48 | Outpatient (AMB) | payer OTHER, SELFPAY ==
--- OUTSIDE RECORDS SUMMARY | 2024-10-03 13:57 | XMS_ITS | Encounter Summary ---
Author Organization [facility] Address [address] [place] [address] Care Team Providers Care Occupational Therapist Rehab Manager Name Role Phone Physician, No Pcp Primary Care Provider Unavaila ble Encounter Details Date Type Department Care Team (Latest Contact Info) Description 05/24/[address] [facility] - Main Lab [address] [facility] [place] [id number] Derek Murrieta MD [address] [facility] [address] [place] [address] Encounter for screening for infections with a predominantly sexual mode of transmission; Encounter for screening for Streptococcus B Social History Tobacco Use Types Packs/Day Years Used Date Smoking Tobacco: Never Assessed Comments Yes Sex and Gender Information Value Date Recorded Sex Assigned at Not on file Legal Sex Female 3:32 PM EST Gender Identity Not on file Sexual Orientation Not on file documented as of this encounter Plan of Treatment Not on file documented as of this encounter Procedures Procedure Name Priority Date/Time Associated Diagnosis Comments CHLAMYDIA TRACHOMATIS AND NEISSERIA GONORRHOEAE PCR Routine 05/24/2024 12:00 AM EST Encounter for screening for infections with a predominantly sexual mode of transmission Encounter for screening for Streptococcus B STREP B PCR Routine 05/24/2024 12:00 AM EST Encounter for screening for infections with a predominantly sexual mode of transmission Encounter for screening for Streptococcus B documented in this encounter Results * Chlamydia trachomatis and Neisseria gonorrhoeae molecular study (05/24/2024 12:00 AM EST) Neisseria gonorrhoeae PCR Negative Negative LAB MOLECULAR DIAGNOSTICS METHOD 05/25/2024 9:28 AM EST [facility] Chlamydia trachomatis PCR Negative Negative LAB MOLECULAR DIAGNOSTICS METHOD 05/25/2024 9:28 AM EST [facility] Swab Cervix uteri structure / Unknown Non-blood Collection / Unknown 05/24/2024 05/24/2024 6:46 PM EST us Derek Murrieta MD LAB MICROBIOLOGY - GENERAL ORD ERABLES Final Result Performing Organization Address [facility]/ZIP Co de Phone Number [facility] [address] [place] [address], [place] [phone] * (ABNORMAL) Strep B molecular study (05/24/2024 12:00 AM EST) Grp B Strep PCR Detected (A) Not Detected LAB MICROBIOLOGY METHOD 05/26/2024 7:51 AM [facility] Swab Vaginal swab / Unknown Non-blood Collection / Unknown 05/24/2024 05/24/2024 6:46 PM EST Narrative [facility] - 05/26/2024 7:51 AM EST Group B Streptococcus Susceptibility testing is not routinely performed since this organism is predictably sensitive to Penicillin. Susceptibility testing should be performed for Penicillin Allergic women at HIGH RISK for Anaphylaxis. Should this patient ??require testing, Please contact the Microbiology Department at [phone] within 7 days of receiving this report to request susceptibility. us Derek Murrieta MD LAB BLOOD ORDERABLES Final Res ult Performing Organization Address City/[facility]/ZIP Co de Phone Number [facility] [address] [place] [address], [place] [phone] documented in this encounter Visit Diagnoses Diagnosis Encounter for screening for infections with a predominantly sexual mode of transmission Encounter for screening for Streptococcus B documented in this encounter Care Teams Occupational Therapist Rehab Manager Relationship Specialty Start Date End Date Physician, No Pcp PCP - General 06/06/24 documented as of this encounter
--- NOTE | 2024-10-03 13:58 | A.OFFPC_ITS ---
Vital Signs 10/03/24 13:59 Height 5 ft Weight 156 lb BMI 30.5 BP 112/74 Blood Pressure Location Lt brachial Position Sitting Pulse 73 Pulse Source Pulse Oximeter Pulse Oximetry (%) 98 Oxygen Delivery Method Room Air Intake Visit Reasons: PE w/ labs Allergies egg yolk [EGG YOLK] Allergy (Unknown, Verified 10/03/24 13:59) ITCHY EYES oak [OAK] Allergy (Unknown, Verified 10/03/24 13:59) ITCHY EYES FROM OAK TREES Medication List - Last Reconciled 10/03/24 by SO Mccollum- multivitamin (Daily Multi-Vitamin tablet) 1 tab PO DAILY Tobacco use date assessed: 10/03/24 Dental Screening Dental Screen Date: 10/03/24 Did you have a dental visit in the last 12 months?: Yes Did you have a dental problem in the last 6 months where you did not have access to dental care?: No Was dental information given to patient?: Patient has dentist HPI PE w/ labs HPI Details History of Present Illness The patient is a 29-year-old female presenting for a routine physical examination. She reports feeling generally well, and preliminary examinations have failed to reveal significant issues. Health Maintenance - Encouraged to schedule appropriate fas ting lab tests in the near future. Social History Review of Systems - Respiratory: Denies shortness of breat h, chest pain. - Gastrointestinal: Denies abdominal kenny n, constipation, diarrhea. -denies any fevers, chills, n/v, urinary issues, si or hi Physical Exam General: Cooperative, healthy appearing, comfortable, no acute distress and well developed, obese Orientation: Patient oriented x3 Limitations: No limitations Head: Normal to inspection Ears: Hearing grossly normal bilaterally Nose: Normal external nose present Face and sinus: Normal facial exam Eyes: Appearance normal, both eyes and all related structures Neck: Normal visual inspection and Yes full ROM Respiratory: Normal respiratory effort and able to speak in complete sentences. Clear to auscultation bilaterally Cardiovascular: Regular rate and rhythm. Normal S1 and S2 GI: Normal to inspection. Soft to palpation and nontender Skin: No rashes or lesions noted Neuro: Patient oriented x3 Extremities: Normal to inspection Results Plan In response to the patient's visit for a routine physical examination, I emphasized the need to uphold health maintenance through scheduled fasting laboratory tests to comprehensively evaluate her health background. She does not currently present with any active complaints or medical issues necessitating immediate intervention. Therefore, at present, the focus remains on preventative care, ensuring timely completion of the lab work. Discussion Notes During the consultation, I discussed the importance of maintaining regular health checks and the role fasting laboratory tests play in early detection and prevention of potential health issues. The patient was informed about the procedures and the necessity of completing these tests soon. Consent was implied through understanding and acknowledgment of the outlined recommendations. There was no necessity for acute interventions as she displayed no immediate symptoms. The approach prioritizes ongoing health monitoring and maintenance. Patient Instructions - Schedule and complete fasting lab test s soon to maintain health. - Continue to monitor health and report any new symptoms if they arise. - Maintain regular physical exam appoint ments. [facility] Medical History Back pain Morbid obesity Surgical History H/O gastric sleeve Hx of wisdom tooth extraction Hx of tonsillectomy Hx of breast reduction, elective Hx of section Family History Mother No problems noted. Father Hypertension Sister No problems noted. Sister No problems noted. Brother No problems noted. Daughter No problems noted. Paternal Uncle Mental health disorder Substance use disorder Social History Household Members: Family Housing: Apartment Are you a primary plant health care technician to a significant other at home: Yes Do you presently have visiting nurse or other home services: No Alcohol intake: never Patient Tobacco Use Status: Never used Tobacco e-Cigarette/Vaping Use: Never Used Second Hand Smoke Exposure: No service: No Current occupational status: unemployed Cognitive needs: No Hearing needs: No Vision needs: No Female Reproductive History Menstrual Age of Menarche: 11 Questionnaire PHQ-9 Over the last 2 weeks, how often have you been bothered by any of the following problems? 1. Little interest or pleasure in doing things: not at all 2. Feeling down, depressed, or hopeless: not at all 3. Trouble falling or staying asleep, or sleeping too much: not at all 4. Feeling tired or having little energy: not at all 5. Poor appetite or overeating: not at all 6. Feeling bad about yourself - or that you are a failure or have let yourself or your family down: not at all 7. Trouble concentrating on things, such as reading the newspaper or watching television: not at all 8. Moving or speaking so slowly that other people could have noticed. Or the opposite - being so fidgety or restless that you have been moving around a lot more than usual: not at all 9. Thoughts that you would be better off or of hurting yourself in some way: not at all Total score: 0 Depression Screening Interpretation: Negative Depression Screening Done: Yes 50667 - PHQ-9 Billing: Yes Source: Developed by Drs. Charly Lay, Melly Ocampo, Darryl Sawyer and colleagues, with an educational jana from [employer]. Thrive Questionnaire Date Thrive assessed: 10/03/24 I am a: Patient What is your living situation today?: I have a steady place to live Within the past 12 months, did the food you bought not last and you didn't have the money to get more?: Never true Within the past 12 months, did you worry whether your food would run out before you got money to buy more?: Never true Do you have trouble paying for medicines?: No Do you have trouble getting transportation to medical appointments?: No Do you have trouble paying your heating and electricity bill?: No Do you have trouble taking care of your child, family member or friend?: No Do you have trouble with day-to-day activities such as bathing, preparing meals, shopping, managing finances, etc.?: No Are you currently unemployed and looking for a job?: No Are you interested in more education?: No Please select the resources that you would like help with: None Currently or been in a relationship where the following occur: No concerns reported THRIVE Score: 0 AUDIT C Alcohol Use Questionnaire (AUDIT-C) 1. How often do you have a drink containing alcohol?: Never 3. How often do you have six or more drinks on one occasion?: Never Total Score: 0 Score Reviewed/Action Taken: Yes KASSIE-7 AMB Questionnaire KASSIE-7 Date KASSIE - 7 assessed: 10/03/24 Feeling nervous, anxious, or on edge: 0 = Not at all Not being able to stop or control worryin = Not at all Worrying too much about different things: 0 = Not at all Trouble relaxin = Not at all Being so restless that it is hard to sit still: 0 = Not at all Becoming easily annoyed or irritable: 0 = Not at all Feeling afraid as if something awful might happen: 0 = Not at all Total KASSIE-7 score (0-4 normal; 5-9 mild; 10-14 moderate; 15-21 severe): 0 Source: Developed by Drs. Charly Lay, Melly Ocampo, Darryl Sawyer and colleagues, with an educational jana from [employer]. KASSIE-7 Assessment Billing KASSIE-7 Assessment Tool: KASSIE-7 Assessment 34104 Physical exam (Primary Care) Vital Signs: Last Vital Signs Pulse 73 10/03/24 13:59 BP 112/74 10/03/24 13:59 Pulse Ox 98 10/03/24 13:59 Oxygen Delivery Method Room Air 10/03/24 13:59 BMI result Body Mass Index 30.5 Tobacco/Smoking Status: Tobacco use Status Tobacco use date assessed 10/03/24 10/03/24 14:02 Patient Tobacco Use Status Never used Tobacco 10/03/24 14:02 e-Cigarette/Vaping Use Never Used 10/03/24 14:02 PHQ-9: PHQ-9 Score PHQ-9: Total score 0 10/03/24 14:02 Depression Screening Interpretation: Negative Thrive Assessment: Date of Thrive Assessment Date Thrive assessed 10/03/24 10/03/24 14:02 Currently or been in a relationship where the following occur: No concerns reported Coding Level of Care Code Est Pt Prev Care 18-39y(55950) Diagnoses Obesity (BMI 30-39.9) E66.9 Physical exam Z00.00 Additional Codes KASSIE-7 Assessment Billing - KASSIE-7 Assessment Tool: KASSIE-7 Assessment 47520 ([id number]) PHQ-9 - 81877 - PHQ-9 Billing: Yes ([id number]) Assessment & Plan Assessment & Plan (1) Obesity (BMI 30-39.9): Code(s): E66.9 - Obesity, unspecified Category: Medical (2) Physical exam: Code(s): Z00.00 - Encounter for general adult medical examination without abnormal findings Category: Medical Plan .
[2024-10-03 13:59] VITALS: BP 112/74; PULSE 73; O2SAT 98; BMI 30.5
== END 2024-10-03 14:53 | disposition home or self-care (01) ==
PROVIDERS: PCP Nurse Practitioner Family; Visit Provider Nurse Practitioner Family
DX: Z00.00 Encounter for general adult medical examination without abnormal findings (principal); E66.9 Obesity, unspecified; Z68.30 Body mass index [BMI] 30.0-30.9, adult

== ENCOUNTER → 2024-10-03 13:48 | Outpatient (BNVA) | payer OTHER, SELFPAY | PROVIDERS: PCP Nurse Practitioner Family; Visit Provider Nurse Practitioner Family | DX: Z00.00 Encounter for general adult medical examination without abnormal findings (principal); E66.9 Obesity, unspecified; Z68.30 Body mass index [BMI] 30.0-30.9, adult | CPT/HCPCS: 96127; 99395 ==